=== PATIENT | male | born 1975 | race Caucasian/White ===

== ENCOUNTER 2017-01-19 10:47 | Inpatient (IN) | payer BC, OTHER ==
[~2017-01-19 10:47] MED LIST: Lidocaine 1%/Sod Bicarbonate in NS 8.4% 1 ML Syringe PRN; Sodium Chloride 0.9% 10 ML Syringe FLUSH PRN
[2017-01-19] MEDS ORDERED: fentaNYL 100 MCG/2 ML SDV ONE (12:29)
[2017-01-19] MEDS: Lactated Ringers 1,000 ML IV SCH ×2 (12:31→14:02)
[2017-01-19] MEDS ORDERED: Propofol 200 MG/20 ML SDV ONE ×6 (12:36→17:20)
[2017-01-19] MEDS ORDERED: Midazolam 1 MG/ML 2 ML SDV ONE (12:36)
[2017-01-19] MEDS ORDERED: Morphine PF 10 MG/10 ML SDV ONE (12:37)
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
[2017-01-19] MEDS ORDERED: ceFAZolin 1 GM Vial ONE (14:51)
[2017-01-19] MEDS ORDERED: ePHEDrine 50 MG/ML SDV ONE (15:52)
[2017-01-19] MEDS ORDERED: Lactated Ringers 1,000 ML ONE ×2 (16:07→16:54)
[2017-01-19] MEDS: ceFAZolin 1 GM Vial ONE ×2 (16:45→16:57)
[2017-01-19] MEDS: Morphine 8 MG, EPINEPHrine 0.3 MG, Cefuroxime 750 MG, Ketorolac 30 MG, Sodium Chloride ... ONE ×15 (16:45→20:00)
[2017-01-19] MEDS: Iodine/Sodium Iodide 2% Tincture 30 ML Bottle ONE ×2 (16:45→16:54)
[2017-01-19] MEDS: Bupivacaine 0.25% 30 ML SDV ONE ×4 (16:46→17:35)
[2017-01-19] MEDS: Vancomycin 1 GM SDV ONE ×2 (16:49→17:09)
[2017-01-19] MEDS: Triamcinolone Acetonide 40 MG/ML 1 ML MDV ONE ×2 (16:50→17:35)
[2017-01-19] MEDS ORDERED: Ketorolac 15 MG/ML SDV IVPUSH PRN (17:41)
[2017-01-19] MEDS ORDERED: Morphine 2 MG/ML Syringe IVPUSH PRN (17:41)
[2017-01-19] MEDS ORDERED: Magnesium Hydroxide 400 MG/5 ML Susp 30 ML Cup PO PRN (17:41)
[2017-01-19] MEDS ORDERED: Naloxone 0.4 MG/ML SDV IVPUSH PRN (17:41)
[2017-01-19] MEDS ORDERED: Ondansetron 4 MG/2 ML SDV IVPUSH PRN (17:41)
[2017-01-19] MEDS ORDERED: Bisacodyl 5 MG Tab PO PRN (17:41)
[2017-01-19] MEDS ORDERED: Cyclobenzaprine 10 MG Tab PO PRN (17:41)
[2017-01-19] MEDS ORDERED: Sennosides 8.6 MG Tab PO PRN (17:41)
[2017-01-19] MEDS ORDERED: diphenhydrAMINE 50 MG/ML SDV IVPUSH PRN (17:48)
[2017-01-19] MEDS ORDERED: fentaNYL 100 MCG/2 ML SDV IVPUSH PRN (17:48)
[2017-01-19] MEDS ORDERED: Zolpidem 5 MG Tab PO PRN (17:53)
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
--- NOTE | 2017-01-19 18:44 | CR ---
Pelvis and left hip: AP view of the pelvis was obtained as well as lateral view of the left hip. Comparison: Previous MRI left hip study of 10/13/16 and left hip exam of 09/10/16. Left hip prosthesis is noted. This appears to have been recently placed with soft tissue air being noted. Components of the prosthesis are aligned. No underlying bony abnormality is seen. Impression: 1. Satisfactory appearance of recently placed left hip prosthesis. Diagnostic code #2
[2017-01-19] MEDS ORDERED: Sodium Chloride 0.9% 250 ML IV ONE (19:55)
[2017-01-19] MEDS: Famotidine 20 MG Tab PO SCH (19:56)
[2017-01-19] MEDS ORDERED: Metoprolol Tartrate 5 MG/5 ML SDV IVPUSH PRN (19:57)
[2017-01-19] MEDS ORDERED: hydrALAZINE 20 MG/ML SDV IVPUSH PRN (19:57)
[2017-01-19] MEDS ORDERED: Sodium Chloride 0.9% 500 ML IV SCH (20:00)
[2017-01-19] MEDS: Acetaminophen/oxyCODONE 325-5 MG Tab PO PRN (20:07)
[2017-01-19] MEDS: Gabapentin 600 MG Tab PO SCH (20:58)
[2017-01-19] MEDS: Docusate Sodium 100 MG Cap PO SCH (20:58)
[2017-01-20] MEDS: ceFAZolin 2 GM in Premix Bag 1 BAG IV SCH ×3 (00:06→13:50)
[2017-01-20] MEDS: Acetaminophen/oxyCODONE 325-5 MG Tab PO PRN ×2 (00:07→12:08)
[2017-01-20] MEDS: Famotidine 20 MG Tab PO SCH (05:05)
[2017-01-20] MEDS ORDERED: Multivitamins,Therapeutic Tab PO SCH (07:00)
[2017-01-20] MEDS ORDERED: Tamsulosin 0.4 MG Cap.ER PO ONE (08:00)
[2017-01-20] MEDS: Gabapentin 600 MG Tab PO SCH ×2 (08:11→14:16)
[2017-01-20] MEDS: Docusate Sodium 100 MG Cap PO SCH (08:11)
--- NOTE | 2017-01-20 08:47 | PCM48HPAN ---
Post Anesthesia Note - EVALUATION WITHIN 48HRS OF ANESTHETIC Vital Signs in Normal Range: Yes Patient Participated in Evaluation: Yes Respiratory Function Stable: Yes Airway Patent: Yes Cardiovascular Function Stable: Yes Hydration Status Stable: Yes Pain Control Satisfactory: Yes Nausea and Vomiting Control Satisfactory: Yes Mental Status Recovered: Yes - COMMENTS/OBSERVATIONS Free Text/Narrative:: Patient denied any headache, residual numbness/tingling to lower extremities, or back pain.
[2017-01-20] MEDS ORDERED: Aspirin 325 MG Tab.EC PO SCH (09:00)
[2017-01-20] MEDS ORDERED: Simvastatin 20 MG Tab PO SCH (09:00)
--- NOTE | 2017-01-20 09:21 | PCM.DCSUM1 ---
Discharge Summary - Discharge Data Discharge Date: 01/20/17 (Admit date: 01/19/17) Discharge Disposition: Home, Self-Care 01 Condition: Good - Discharge Diagnosis/Problem(s) (1) Status post total hip replacement, left SNOMED Code(s): 816653645870, [id number] ICD Code: Z96.642 - PRESENCE OF LEFT ARTIFICIAL HIP JOINT Status: Acute Priority: High Current Visit: Yes Onset Date: ~01/19/17 (2) Dyslipidemia SNOMED Code(s): 856251564 ICD Code: E78.5 - HYPERLIPIDEMIA, UNSPECIFIED Status: Acute Current Visit : Yes (3) Chronic back pain SNOMED Code(s): 243239493 ICD Code: M54.9 - DORSALGIA, UNSPECIFIED; G89.29 - OTHER CHRONIC PAIN Status: Chronic Priority: Low Current Visit: Yes - Patient Summary/Data Consults: Consultations 01/19/17 17:41 Consult to Physician [CONS] Routine OT Evaluation and Treatment [CONS] Routine 01/19/17 17:49 PT Evaluation and Treatment [CONS] Routine - Patient Instructions Diet: Usual Diet as Tolerated Activity: Apply Ice, As Tolerated, Cough & Deep Breathe Driving: Do Not Drive Showering/Bathing: May Shower Wound/Incision Care: Keep Operative Site/Wound Site Clean and Dry, Do NOT Change Dressing Notify Provider of: Fever, Increased Pain, Swelling and Redness, Drainage, Nausea and/or Vomiting - Discharge Plan Home Medications: Home Meds oxyCODONE HCl/Acetaminophen [Percocet 5-325 mg Tablet] 1 - 2 each PO Q4HR PRN # 60 tablet 06/30/16 [Rx] Cyclobenzaprine [Flexeril] 10 mg PO Q6H PRN 01/16/17 [History] Gabapentin [Neurontin] 600 mg PO TID 01/16/17 [History] Zolpidem Tartrate [Zolpidem Tartrate] 5 mg PO DAILY 01/16/17 [History] atorvaSTATin [Lipitor] 20 mg PO DAILY 01/16/17 [History] - Discharge Summary/Plan Comment DC Time >30 min.: Yes (40) Discharge Summary/Plan Comment: Patient admitted to hospital s/p left total hip replacement. Hospitalist service consulted to co-manage patient. Herminio Vázquez is a relatively healthy 41 y.o. male patient who has a history of dyslpidemia - Patient Data Vitals - Most Recent: Last Vital Signs Temp 97.7 F 01/20/17 04:11 Pulse 91 01/20/17 08:01 Resp 12 01/20/17 04:11 BP 105/82 01/20/17 08:01 Pulse Ox 95 01/20/17 08:50 Weight - Most Recent: 264 lb 3.2 oz I&O - Last 24 hours: Intake & Output 01/19/17 01/20/17 01/20/17 22:59 06:59 14:59 Intake Total 800 3000 Output Total 325 225 Balance 475 5225 Lab Results - Last 24 hrs: Laboratory Results - last 24 hr 01/19/17 01/20/17 01/20/17 Range/Units 12:26 05:45 05:45 WBC 13.30 H (4.23-9.07) K/mm3 RBC 3.94 L (4.63-6.08) M/mm3 Hgb 12.8 L (13.7-17.5) gm/L Hct 36.4 L (40.1-51.0) % MCV 92.4 H (79.0-92.2) fl MCH 32.5 H (25.7-32.2) pg MCHC 35.2 (32.2-35.5) g/dl RDW Std Deviation 40.1 (35.1-43.9) fL Plt Count 193 (163-337) K/mm3 MPV 9.7 (9.4-12.3) fl Sodium 134 L (136-145) mEq/L Potassium 4.3 (3.5-5.1) mEq/L Chloride 100 (98-107) mEq/L Carbon Dioxide 24 (21-32) mEq/L Anion Gap 14.3 (5-15) BUN 14 (7-18) mg/dL Creatinine 1.2 (0.7-1.3) mg/dL Est Cr Clr Drug Dosing 86.71 mL/min Estimated GFR (MDRD) > 60 (>60) mL/min BUN/Creatinine Ratio 11.7 L (14-18) Glucose 141 H (74-106) mg/dL Calcium 8.2 L (8.5-10.1) mg/dL Total Bilirubin 0.8 (0.2-1.0) mg/dL AST 31 (15-37) U/L ALT 93 H (16-63) U/L Alkaline Phosphatase 55 (46-116) U/L Total Protein 6.1 L (6.4-8.2) g/dl Albumin 3.6 (3.4-5.0) g/dl Globulin 2.5 gm/dL Albumin/Globulin Ratio 1.4 (1-2) Blood Type O POSITIVE Gel Antibody Screen Negative Med Orders - Current: Current Medications Aspirin (Ecotrin) 325 mg PO BID [facility] Last Admin: 01/20/17 08:12 Dose: 325 mg Bisacodyl (Dulcolax) 5 mg PO DAILY PRN PRN Reason: Constipation Cyclobenzaprine HCl (Flexeril) 10 mg PO TID PRN PRN Reason: Spasms Last Admin: 01/20/17 00:06 Dose: 10 mg Docusate Sodium (Colace) 100 mg PO BID [facility] Last Admin: 01/20/17 08:11 Dose: 100 mg Famotidine (Pepcid) 20 mg PO Q12H [facility] Last Admin: 01/20/17 05:05 Dose: 20 mg Gabapentin (Neurontin) 600 mg PO TID [facility] Last Admin: 01/20/17 08:11 Dose: 600 mg Hydralazine HCl (Apresoline) 20 mg IVPUSH Q4H PRN PRN Reason: Hypertension Cefazolin Sodium/Dextrose 2 gm (/ Premix) 50 mls @ 100 mls/hr IV Q8H [facility] Stop: 01/20/17 17:29 Last Admin: 01/20/17 08:45 Dose: 100 mls/hr Ketorolac Tromethamine (Toradol) 15 mg IVPUSH Q6H PRN PRN Reason: Pain Last Admin: 01/20/17 00:06 Dose: 15 mg Magnesium Hydroxide (Milk Of Magnesia) 30 ml PO BID PRN PRN Reason: Constipation Metoprolol Tartrate (Lopressor) 5 mg IVPUSH Q4H PRN PRN Reason: Tachycardia Morphine Sulfate (Morphine) 2 mg IVPUSH Q2H PRN PRN Reason: Breakthrough Pain Multivitamins (Thera) 1 each PO WITHBREAKFAST [facility] Last Admin: 01/20/17 06:16 Dose: 1 each Naloxone HCl (Narcan) 0.1 mg IVPUSH Q5M PRN PRN Reason: Oversedation Ondansetron HCl (Zofran) 4 mg IVPUSH Q6H PRN PRN Reason: Nausea/Vomiting Oxycodone/Acetaminophen (Percocet 325-5 Mg) 1 - 2 tab PO Q4H PRN PRN Reason: Pain Last Admin: 01/20/17 00:07 Dose: 2 tab Senna (Senna) 8.6 mg PO BID PRN PRN Reason: Constipation Simvastatin (Zocor) 20 mg PO DAILY [facility] Last Admin: 01/20/17 08:12 Dose: 20 mg Zolpidem Tartrate (Ambien) 5 mg PO DAILY PRN PRN Reason: Insomnia Last Admin: 01/19/17 20:58 Dose: 5 mg Discontinued Medications Bupivacaine HCl (Marcaine 0.25%) Confirm Administered Dose 60 ml .ROUTE .STK- MED ONE Stop: 01/19/17 13:26 Last Admin: 01/19/17 17:35 Dose: 4 ml Cefazolin Sodium (Ancef) Confirm Administered Dose 2 gm .ROUTE .STK-MED ONE Stop: 01/19/17 13:26 Last Admin: 01/19/17 16:57 Dose: 2 gm Cefazolin Sodium (Ancef) Confirm Administered Dose 2 gm .ROUTE .STK-MED ONE Stop: 01/19/17 14:52 Morphine Sulfate 8 mg/Epinephrine HCl 0.3 mg/Cefuroxime Sodium 750 mg/Ketorolac Tromethamine 30 mg/Sodium Chloride 27.9 ml 0 mg .XX ONETIME ONE Stop: 01/19/17 14:01 Last Admin: 01/19/17 20:00 Dose: Not Given Diphenhydramine HCl (Benadryl) 25 mg IVPUSH Q6H PRN PRN Reason: Itching Ephedrine Sulfate (Ephedrine Sulfate) Confirm Administered Dose 50 mg .ROUTE .STK-MED ONE Stop: 01/19/17 15:53 Fentanyl (Sublimaze) Confirm Administered Dose 100 mcg .ROUTE .STK-MED ONE Stop: 01/19/17 12:30 Fentanyl (Sublimaze) 50 mcg IVPUSH Q5M PRN PRN Reason: Pain Lactated Ringer's (Ringers, Lactated) 1,000 mls @ 125 mls/hr IV ASDIRECTED [facility] Stop: 01/19/17 23:00 Last Admin: 01/19/17 14:02 Dose: 125 mls/hr Lactated Ringer's (Ringers, Lactated) Confirm Administered Dose 1,000 mls @ as directed .ROUTE .STK-MED ONE Stop: 01/19/17 16:08 Lactated Ringer's (Ringers, Lactated) Confirm Administered Dose 1,000 mls @ as directed .ROUTE .STK-MED ONE Stop: 01/19/17 16:55 Sodium Chloride (Normal Saline) 250 mls @ 99 mls/hr IV .BOLUS ONE Stop: 01/19/17 22:26 Last Admin: 01/19/17 20:15 Dose: 999 mls/hr Sodium Chloride (Normal Saline) 500 mls @ 125 mls/hr IV ASDIRECTED [facility] Iodine (Iodine 2% Mild Tincture) Confirm Administered Dose 30 ml .ROUTE .STK- MED ONE Stop: 01/19/17 13:26 Last Admin: 01/19/17 16:54 Dose: 18 ml Lidocaine/Sodium Bicarbonate (Buffered Lidocaine 1% In Ns 8.4%) 0.25 ml .XX ONETIME PRN PRN Reason: Prior to IV Start Stop: 01/19/17 18:00 Last Admin: 01/19/17 12:31 Dose: 0.25 ml Midazolam HCl (Versed 1 Mg/Ml) Confirm Administered Dose 2 mg .ROUTE .STK-MED ONE Stop: 01/19/17 12:37 Morphine Sulfate (Duramorph Pf) Confirm Administered Dose 10 mg .ROUTE .STK-MED ONE Stop: 01/19/17 12:38 Propofol (Diprivan 20 Ml) Confirm Administered Dose 400 mg .ROUTE .STK-MED ONE Stop: 01/19/17 12:37 Propofol (Diprivan 20 Ml) Confirm Administered Dose 200 mg .ROUTE .STK-MED ONE Stop: 01/19/17 12:52 Propofol (Diprivan 20 Ml) Confirm Administered Dose 200 mg .ROUTE .STK-MED ONE Stop: 01/19/17 16:21 Propofol (Diprivan 20 Ml) Confirm Administered Dose 200 mg .ROUTE .STK-MED ONE Stop: 01/19/17 16:46 Propofol (Diprivan 20 Ml) Confirm Administered Dose 200 mg .ROUTE .STK-MED ONE Stop: 01/19/17 17:06 Propofol (Diprivan 20 Ml) Confirm Administered Dose 200 mg .ROUTE .STK-MED ONE Stop: 01/19/17 17:21 Sodium Chloride (Saline Flush) 10 ml FLUSH ASDIRECTED PRN PRN Reason: Keep Vein Open Stop: 01/19/17 18:00 Tamsulosin HCl (Flomax) 0.4 mg PO ONETIME ONE Stop: 01/20/17 08:01 Last Admin: 01/20/17 08:11 Dose: 0.4 mg Tranexamic Acid (Cyklokapron) Confirm Administered Dose 1,000 mg .ROUTE .STK- MED ONE Stop: 01/19/17 13:26 Last Admin: 01/19/17 17:09 Dose: 1,000 mg Triamcinolone Acetonide (Kenalog-40) Confirm Administered Dose 80 mg .ROUTE .STK -MED ONE Stop: 01/19/17 13:26 Last Admin: 01/19/17 17:35 Dose: 80 mg Vancomycin HCl (Vancomycin) Confirm Administered Dose 1 gm .ROUTE .STK-MED ONE Stop: 01/19/17 13:26 Last Admin: 01/19/17 17:09 Dose: 1 gm *Q Meaningful Use (DIS) - VTE *Q VTE Criteria *Q: - Stroke *Q Stroke Criteria *Q: - AMI *Q AMI Criteria *Q:
--- NOTE | 2017-01-20 09:41 | PCM.PN ---
- General Info Date of Service: 01/20/17 Admission Dx/Problem (Free Text): Admission Diagnosis/Problem Admission Diagnosis/Problem Osteoarthritis of hip Functional Status: Reports: Pain Controlled, Ambulating, Urinating (minimal amount), Incentive Spirometry Pain Score: 3 - Review of Systems General: Reports: Appetite. Denies: Fever, Weakness, Fatigue, Malaise, Chills, Night Sweats HEENT: Denies: Ear Pain, Eye Pain, Headaches, Sore Throat Pulmonary: Denies: Shortness of Breath, Pleuritic Chest Pain, Cough, Sputum, Wheezing Cardiovascular: Denies: Chest Pain, Palpitations, Dyspnea on Exertion, Edema, Lightheadedness Gastrointestinal: Reports: Difficulty Swallowing (using walker ), Flatus. Denies: Abdominal Pain, Constipation, Decreased Appetite, Diarrhea, Nausea, Vomiting Genitourinary: Denies: Dysuria, Frequency, Burning, Pain, Urgency Musculoskeletal: Reports: Back Pain (chronic), Leg Pain (mild ). Denies: Neck Pain Skin: Reports: Other (wound on left hip that is bandaged ). Denies: Cyanosis Neurological: Reports: Difficulty Walking, Gait Disturbance. Denies: Confusion , Dizziness, Headache, Numbness, Weakness Psychiatric: Reports: No Symptoms - Patient Data Vitals - Most Recent: Last Vital Signs Temp 97.7 F 01/20/17 04:11 Pulse 91 01/20/17 08:01 Resp 12 01/20/17 04:11 BP 105/82 01/20/17 08:01 Pulse Ox 95 01/20/17 08:50 Weight - Most Recent: 264 lb 3.2 oz I&O - Last 24 Hours: Intake & Output 01/19/17 01/20/17 01/20/17 22:59 06:59 14:59 Intake Total 800 3000 Output Total 325 225 Balance 475 3465 Lab Results Last 24 Hours: Laboratory Results - last 24 hr 01/19/17 01/20/17 01/20/17 Range/Units 12:26 05:45 05:45 WBC 13.30 H (4.23-9.07) K/mm3 RBC 3.94 L (4.63-6.08) M/mm3 Hgb 12.8 L (13.7-17.5) gm/L Hct 36.4 L (40.1-51.0) % MCV 92.4 H (79.0-92.2) fl MCH 32.5 H (25.7-32.2) pg MCHC 35.2 (32.2-35.5) g/dl RDW Std Deviation 40.1 (35.1-43.9) fL Plt Count 193 (163-337) K/mm3 MPV 9.7 (9.4-12.3) fl Sodium 134 L (136-145) mEq/L Potassium 4.3 (3.5-5.1) mEq/L Chloride 100 (98-107) mEq/L Carbon Dioxide 24 (21-32) mEq/L Anion Gap 14.3 (5-15) BUN 14 (7-18) mg/dL Creatinine 1.2 (0.7-1.3) mg/dL Est Cr Clr Drug Dosing 86.71 mL/min Estimated GFR (MDRD) > 60 (>60) mL/min BUN/Creatinine Ratio 11.7 L (14-18) Glucose 141 H (74-106) mg/dL Calcium 8.2 L (8.5-10.1) mg/dL Total Bilirubin 0.8 (0.2-1.0) mg/dL AST 31 (15-37) U/L ALT 93 H (16-63) U/L Alkaline Phosphatase 55 (46-116) U/L Total Protein 6.1 L (6.4-8.2) g/dl Albumin 3.6 (3.4-5.0) g/dl Globulin 2.5 gm/dL Albumin/Globulin Ratio 1.4 (1-2) Blood Type O POSITIVE Gel Antibody Screen Negative Med Orders - Current: Current Medications Aspirin (Ecotrin) 325 mg PO BID REPLACED BY [facility] Last Admin: 01/20/17 08:12 Dose: 325 mg Bisacodyl (Dulcolax) 5 mg PO DAILY PRN PRN Reason: Constipation Cyclobenzaprine HCl (Flexeril) 10 mg PO TID PRN PRN Reason: Spasms Last Admin: 01/20/17 00:06 Dose: 10 mg Docusate Sodium (Colace) 100 mg PO BID REPLACED BY [facility] Last Admin: 01/20/17 08:11 Dose: 100 mg Famotidine (Pepcid) 20 mg PO Q12H REPLACED BY [facility] Last Admin: 01/20/17 05:05 Dose: 20 mg Gabapentin (Neurontin) 600 mg PO TID REPLACED BY [facility] Last Admin: 01/20/17 08:11 Dose: 600 mg Hydralazine HCl (Apresoline) 20 mg IVPUSH Q4H PRN PRN Reason: Hypertension Cefazolin Sodium/Dextrose 2 gm (/ Premix) 50 mls @ 100 mls/hr IV Q8H REPLACED BY [facility] Stop: 01/20/17 17:29 Last Admin: 01/20/17 08:45 Dose: 100 mls/hr Ketorolac Tromethamine (Toradol) 15 mg IVPUSH Q6H PRN PRN Reason: Pain Last Admin: 01/20/17 00:06 Dose: 15 mg Magnesium Hydroxide (Milk Of Magnesia) 30 ml PO BID PRN PRN Reason: Constipation Metoprolol Tartrate (Lopressor) 5 mg IVPUSH Q4H PRN PRN Reason: Tachycardia Morphine Sulfate (Morphine) 2 mg IVPUSH Q2H PRN PRN Reason: Breakthrough Pain Multivitamins (Thera) 1 each PO WITHBREAKFAST REPLACED BY [facility] Last Admin: 01/20/17 06:16 Dose: 1 each Naloxone HCl (Narcan) 0.1 mg IVPUSH Q5M PRN PRN Reason: Oversedation Ondansetron HCl (Zofran) 4 mg IVPUSH Q6H PRN PRN Reason: Nausea/Vomiting Oxycodone/Acetaminophen (Percocet 325-5 Mg) 1 - 2 tab PO Q4H PRN PRN Reason: Pain Last Admin: 01/20/17 00:07 Dose: 2 tab Senna (Senna) 8.6 mg PO BID PRN PRN Reason: Constipation Simvastatin (Zocor) 20 mg PO DAILY REPLACED BY [facility] Last Admin: 01/20/17 08:12 Dose: 20 mg Zolpidem Tartrate (Ambien) 5 mg PO DAILY PRN PRN Reason: Insomnia Last Admin: 01/19/17 20:58 Dose: 5 mg Discontinued Medications Bupivacaine HCl (Marcaine 0.25%) Confirm Administered Dose 60 ml .ROUTE .STK- MED ONE Stop: 01/19/17 13:26 Last Admin: 01/19/17 17:35 Dose: 4 ml Cefazolin Sodium (Ancef) Confirm Administered Dose 2 gm .ROUTE .STK-MED ONE Stop: 01/19/17 13:26 Last Admin: 01/19/17 16:57 Dose: 2 gm Cefazolin Sodium (Ancef) Confirm Administered Dose 2 gm .ROUTE .STK-MED ONE Stop: 01/19/17 14:52 Morphine Sulfate 8 mg/Epinephrine HCl 0.3 mg/Cefuroxime Sodium 750 mg/Ketorolac Tromethamine 30 mg/Sodium Chloride 27.9 ml 0 mg .XX ONETIME ONE Stop: 01/19/17 14:01 Last Admin: 01/19/17 20:00 Dose: Not Given Diphenhydramine HCl (Benadryl) 25 mg IVPUSH Q6H PRN PRN Reason: Itching Ephedrine Sulfate (Ephedrine Sulfate) Confirm Administered Dose 50 mg .ROUTE .STK-MED ONE Stop: 01/19/17 15:53 Fentanyl (Sublimaze) Confirm Administered Dose 100 mcg .ROUTE .STK-MED ONE Stop: 01/19/17 12:30 Fentanyl (Sublimaze) 50 mcg IVPUSH Q5M PRN PRN Reason: Pain Lactated Ringer's (Ringers, Lactated) 1,000 mls @ 125 mls/hr IV ASDIRECTED REPLACED BY [facility] Stop: 01/19/17 23:00 Last Admin: 01/19/17 14:02 Dose: 125 mls/hr Lactated Ringer's (Ringers, Lactated) Confirm Administered Dose 1,000 mls @ as directed .ROUTE .STK-MED ONE Stop: 01/19/17 16:08 Lactated Ringer's (Ringers, Lactated) Confirm Administered Dose 1,000 mls @ as directed .ROUTE .STK-MED ONE Stop: 01/19/17 16:55 Sodium Chloride (Normal Saline) 250 mls @ 99 mls/hr IV .BOLUS ONE Stop: 01/19/17 22:26 Last Admin: 01/19/17 20:15 Dose: 999 mls/hr Sodium Chloride (Normal Saline) 500 mls @ 125 mls/hr IV ASDIRECTED REPLACED BY [facility] Iodine (Iodine 2% Mild Tincture) Confirm Administered Dose 30 ml .ROUTE .STK- MED ONE Stop: 01/19/17 13:26 Last Admin: 01/19/17 16:54 Dose: 18 ml Lidocaine/Sodium Bicarbonate (Buffered Lidocaine 1% In Ns 8.4%) 0.25 ml .XX ONETIME PRN PRN Reason: Prior to IV Start Stop: 01/19/17 18:00 Last Admin: 01/19/17 12:31 Dose: 0.25 ml Midazolam HCl (Versed 1 Mg/Ml) Confirm Administered Dose 2 mg .ROUTE .STK-MED ONE Stop: 01/19/17 12:37 Morphine Sulfate (Duramorph Pf) Confirm Administered Dose 10 mg .ROUTE .STK-MED ONE Stop: 01/19/17 12:38 Propofol (Diprivan 20 Ml) Confirm Administered Dose 400 mg .ROUTE .STK-MED ONE Stop: 01/19/17 12:37 Propofol (Diprivan 20 Ml) Confirm Administered Dose 200 mg .ROUTE .STK-MED ONE Stop: 01/19/17 12:52 Propofol (Diprivan 20 Ml) Confirm Administered Dose 200 mg .ROUTE .STK-MED ONE Stop: 01/19/17 16:21 Propofol (Diprivan 20 Ml) Confirm Administered Dose 200 mg .ROUTE .STK-MED ONE Stop: 01/19/17 16:46 Propofol (Diprivan 20 Ml) Confirm Administered Dose 200 mg .ROUTE .STK-MED ONE Stop: 01/19/17 17:06 Propofol (Diprivan 20 Ml) Confirm Administered Dose 200 mg .ROUTE .STK-MED ONE Stop: 01/19/17 17:21 Sodium Chloride (Saline Flush) 10 ml FLUSH ASDIRECTED PRN PRN Reason: Keep Vein Open Stop: 01/19/17 18:00 Tamsulosin HCl (Flomax) 0.4 mg PO ONETIME ONE Stop: 01/20/17 08:01 Last Admin: 01/20/17 08:11 Dose: 0.4 mg Tranexamic Acid (Cyklokapron) Confirm Administered Dose 1,000 mg .ROUTE .STK- MED ONE Stop: 01/19/17 13:26 Last Admin: 01/19/17 17:09 Dose: 1,000 mg Triamcinolone Acetonide (Kenalog-40) Confirm Administered Dose 80 mg .ROUTE .STK -MED ONE Stop: 01/19/17 13:26 Last Admin: 01/19/17 17:35 Dose: 80 mg Vancomycin HCl (Vancomycin) Confirm Administered Dose 1 gm .ROUTE .STK-MED ONE Stop: 01/19/17 13:26 Last Admin: 01/19/17 17:09 Dose: 1 gm - Exam Quality Assessment: Supplemental Oxygen (Pt. on 1L via [place] ) General: Alert, Oriented, Cooperative HEENT: Pupils Equal, Pupils Reactive, EOMI, Mucous Membr. Moist/[place] Neck: Supple, Trachea Midline, No JVD Lungs: Clear to Auscultation, Normal Respiratory Effort Cardiovascular: Regular Rate, Regular Rhythm, No Murmurs GI/Abdominal Exam: Normal Bowel Sounds, Soft, Non-Tender, No Organomegaly, No Distention (Male) Exam: Deferred Back Exam: Normal Inspection, Other (Chronic pain) Extremities: Normal Inspection, No Pedal Edema, Limited Range of Motion (s/p left total hip ). No: Increased Warmth, Redness Peripheral Pulses: 2+: Radial (L), Radial (R), Posterior Tibial (L), Posterior Tibial (R), Dorsalis Pedis (L), Dorsalis Pedis (R) Skin: Warm, Dry, Intact Wound/Incisions: Dressing Dry and Intact, No Drainage Neurological: No New Focal Deficit Psy/Mental Status: Alert, Normal Affect, Normal Mood - Problem List & Annotations (1) Status post total hip replacement, left SNOMED Code(s): 762816620522, 778260785786 Code(s): Z96.642 - PRESENCE OF LEFT ARTIFICIAL HIP JOINT Status: Acute Priority: High Current Visit: Yes Onset Date: ~01/19/17 (2) Dyslipidemia SNOMED Code(s): 215063082 Code(s): E78.5 - HYPERLIPIDEMIA, UNSPECIFIED Status: Acute Current Visit : Yes (3) Chronic back pain SNOMED Code(s): 401254726 Code(s): M54.9 - DORSALGIA, UNSPECIFIED; G89.29 - OTHER CHRONIC PAIN Status : Chronic Priority: Low Current Visit: Yes - Problem List Review Problem List Initiated/Reviewed/Updated: Yes - Plan Plan:: I/P: Acute: Post-operative care state: -Labs this AM: WBC - 13.30 Hgb - 12.8 Hct - 36.4 Plt - 193 Na - 134 K - 4.3 Creatinine - 1.2 Calcium - 8.2 -Continue to monitor for hemodynamic instability S/P Left total hip arthroplasty and left knee steroid injection - Stable - DVT and pain management per primary ortho team Hx of chronic left hip and knee pain secondary to OA/DJD - Pain management per primary care ortho team Resolved: Post operative hypotension - BP 107/64 at 4:11 and 105/62 at 801 Chronic: Dyslipidemia Post-traumatic OA/DJD Post-traumatic back pain Post-traumatic brain injury with memory loss Peripheral neuropathy Obesity - BMI of 34.5 Plan: He remains clinically stable Routine AM meds Continue home meds PT/OT consult IS q2 awake OK from hospitalist standpoint for discharge home today. Thank you for the opportunity to participate in the management of this patient.
[2017-01-20 12:27] VITALS: BP 129/71
--- NOTE | 2017-01-22 09:36 | PCM.SURGPN ---
- General Info Date of Service: 01/20/17 POD#: 1 Functional Status: Reports: Pain Controlled, Tolerating Diet, Ambulating, Urinating, Other (The pt has been active in his room and feels prepared for discharge to home.) - Review of Systems General: Denies: Fever, Chills Musculoskeletal: Reports: Other (The pt has met inpatient therapy goals.) - Patient Data Vitals - Most Recent: Last Vital Signs Temp 98.6 F 01/20/17 11:39 Pulse 91 01/20/17 11:39 Resp 20 01/20/17 09:00 BP 129/71 01/20/17 11:39 Pulse Ox 92 L 01/20/17 11:39 Weight - Most Recent: 264 lb 3.2 oz Med Orders - Current: Current Medications Discontinued Medications Aspirin (Ecotrin) 325 mg PO BID [facility] Last Admin: 01/20/17 08:12 Dose: 325 mg Bisacodyl (Dulcolax) 5 mg PO DAILY PRN PRN Reason: Constipation Bupivacaine HCl (Marcaine 0.25%) Confirm Administered Dose 60 ml .ROUTE .STK- MED ONE Stop: 01/19/17 13:26 Last Admin: 01/19/17 17:35 Dose: 4 ml Cefazolin Sodium (Ancef) Confirm Administered Dose 2 gm .ROUTE .STK-MED ONE Stop: 01/19/17 13:26 Last Admin: 01/19/17 16:57 Dose: 2 gm Cefazolin Sodium (Ancef) Confirm Administered Dose 2 gm .ROUTE .STK-MED ONE Stop: 01/19/17 14:52 Morphine Sulfate 8 mg/Epinephrine HCl 0.3 mg/Cefuroxime Sodium 750 mg/Ketorolac Tromethamine 30 mg/Sodium Chloride 27.9 ml 0 mg .XX ONETIME ONE Stop: 01/19/17 14:01 Last Admin: 01/19/17 20:00 Dose: Not Given Cyclobenzaprine HCl (Flexeril) 10 mg PO TID PRN PRN Reason: Spasms Last Admin: 01/20/17 00:06 Dose: 10 mg Diphenhydramine HCl (Benadryl) 25 mg IVPUSH Q6H PRN PRN Reason: Itching Docusate Sodium (Colace) 100 mg PO BID [facility] Last Admin: 01/20/17 08:11 Dose: 100 mg Ephedrine Sulfate (Ephedrine Sulfate) Confirm Administered Dose 50 mg .ROUTE .STK-MED ONE Stop: 01/19/17 15:53 Famotidine (Pepcid) 20 mg PO Q12H [facility] Last Admin: 01/20/17 05:05 Dose: 20 mg Fentanyl (Sublimaze) Confirm Administered Dose 100 mcg .ROUTE .STK-MED ONE Stop: 01/19/17 12:30 Fentanyl (Sublimaze) 50 mcg IVPUSH Q5M PRN PRN Reason: Pain Gabapentin (Neurontin) 600 mg PO TID [facility] Last Admin: 01/20/17 14:16 Dose: 600 mg Hydralazine HCl (Apresoline) 20 mg IVPUSH Q4H PRN PRN Reason: Hypertension Lactated Ringer's (Ringers, Lactated) 1,000 mls @ 125 mls/hr IV ASDIRECTED [facility] Stop: 01/19/17 23:00 Last Admin: 01/19/17 14:02 Dose: 125 mls/hr Lactated Ringer's (Ringers, Lactated) Confirm Administered Dose 1,000 mls @ as directed .ROUTE .STK-MED ONE Stop: 01/19/17 16:08 Lactated Ringer's (Ringers, Lactated) Confirm Administered Dose 1,000 mls @ as directed .ROUTE .STK-MED ONE Stop: 01/19/17 16:55 Cefazolin Sodium/Dextrose 2 gm (/ Premix) 50 mls @ 100 mls/hr IV Q8H [facility] Stop: 01/20/17 17:29 Last Admin: 01/20/17 13:50 Dose: 100 mls/hr Sodium Chloride (Normal Saline) 250 mls @ 99 mls/hr IV .BOLUS ONE Stop: 01/19/17 22:26 Last Admin: 01/19/17 20:15 Dose: 999 mls/hr Sodium Chloride (Normal Saline) 500 mls @ 125 mls/hr [facility] Iodine (Iodine 2% Mild Tincture) Confirm Administered Dose 30 ml .ROUTE .STK- MED ONE Stop: 01/19/17 13:26 Last Admin: 01/19/17 16:54 Dose: 18 ml Ketorolac Tromethamine (Toradol) 15 mg IVPUSH Q6H PRN PRN Reason: Pain Last Admin: 01/20/17 00:06 Dose: 15 mg Lidocaine/Sodium Bicarbonate (Buffered Lidocaine 1% In Ns 8.4%) 0.25 ml .XX ONETIME PRN PRN Reason: Prior to IV Start Stop: 01/19/17 18:00 Last Admin: 01/19/17 12:31 Dose: 0.25 ml Magnesium Hydroxide (Milk Of Magnesia) 30 ml PO BID PRN PRN Reason: Constipation Metoprolol Tartrate (Lopressor) 5 mg IVPUSH Q4H PRN PRN Reason: Tachycardia Midazolam HCl (Versed 1 Mg/Ml) Confirm Administered Dose 2 mg .ROUTE .STK-MED ONE Stop: 01/19/17 12:37 Morphine Sulfate (Duramorph Pf) Confirm Administered Dose 10 mg .ROUTE .STK-MED ONE Stop: 01/19/17 12:38 Morphine Sulfate (Morphine) 2 mg IVPUSH Q2H PRN PRN Reason: Breakthrough Pain Multivitamins (Thera) 1 each PO WITHBREAKFAST [facility] Last Admin: 01/20/17 06:16 Dose: 1 each Naloxone HCl (Narcan) 0.1 mg IVPUSH Q5M PRN PRN Reason: Oversedation Ondansetron HCl (Zofran) 4 mg IVPUSH Q6H PRN PRN Reason: Nausea/Vomiting Oxycodone/Acetaminophen (Percocet 325-5 Mg) 1 - 2 tab PO Q4H PRN PRN Reason: Pain Last Admin: 01/20/17 12:08 Dose: 2 tab Propofol (Diprivan 20 Ml) Confirm Administered Dose 400 mg .ROUTE .STK-MED ONE Stop: 01/19/17 12:37 Propofol (Diprivan 20 Ml) Confirm Administered Dose 200 mg .ROUTE .STK-MED ONE Stop: 01/19/17 12:52 Propofol (Diprivan 20 Ml) Confirm Administered Dose 200 mg .ROUTE .STK-MED ONE Stop: 01/19/17 16:21 Propofol (Diprivan 20 Ml) Confirm Administered Dose 200 mg .ROUTE .STK-MED ONE Stop: 01/19/17 16:46 Propofol (Diprivan 20 Ml) Confirm Administered Dose 200 mg .ROUTE .STK-MED ONE Stop: 01/19/17 17:06 Propofol (Diprivan 20 Ml) Confirm Administered Dose 200 mg .ROUTE .STK-MED ONE Stop: 01/19/17 17:21 Senna (Senna) 8.6 mg PO BID PRN PRN Reason: Constipation Simvastatin (Zocor) 20 mg PO DAILY [facility] Last Admin: 01/20/17 08:12 Dose: 20 mg Sodium Chloride (Saline Flush) 10 ml FLUSH ASDIRECTED PRN PRN Reason: Keep Vein Open Stop: 01/19/17 18:00 Tamsulosin HCl (Flomax) 0.4 mg PO ONETIME ONE Stop: 01/20/17 08:01 Last Admin: 01/20/17 08:11 Dose: 0.4 mg Tranexamic Acid (Cyklokapron) Confirm Administered Dose 1,000 mg .ROUTE .STK- MED ONE Stop: 01/19/17 13:26 Last Admin: 01/19/17 17:09 Dose: 1,000 mg Triamcinolone Acetonide (Kenalog-40) Confirm Administered Dose 80 mg .ROUTE .STK -MED ONE Stop: 01/19/17 13:26 Last Admin: 01/19/17 17:35 Dose: 80 mg Vancomycin HCl (Vancomycin) Confirm Administered Dose 1 gm .ROUTE .STK-MED ONE Stop: 01/19/17 13:26 Last Admin: 01/19/17 17:09 Dose: 1 gm Zolpidem Tartrate (Ambien) 5 mg PO DAILY PRN PRN Reason: Insomnia Last Admin: 01/19/17 20:58 Dose: 5 mg - Exam Wound/Incisions: Dressing Dry and Intact General: Alert, Cooperative Extremities: Other (Significant eccymosis left thigh. Left thigh soft and nontender. NVS intact for BLE and Dina's negative. Independent SLR LLE.) - Problem List Review Problem List Initiated/Reviewed/Updated: Yes - Assessment Assessment (Free Text/Narrative):: POD#1 - left MARYANN with left knee cortisone injection - Plan Plan (Free Text/Narrative):: 1. Discharge to home today. 2. 325mg ASA BID with TEDs and frequent mobility. 3. Hgb 12.8. 4. MARYANN precautions. The pt's case was discussed with Dr. Russell.
--- NOTE | 2017-01-22 09:39 | PCM.DCSUM1 ---
Discharge Summary - Hospital Course Brief History: Herminio is a 41 yo male who underwent left MARYANN with left knee cortisone injection with Dr. Russlel on 01-19-2017. The procedures were completed under spinal anesthesia with sedation. The pt tolerated the procedures well and was admitted to the Medical-Surgical Unit. The pt received scarlett-operative antibiotic therapy. Medical managment was provided by the Hospitalist service and the pt's hospital course was uneventful. A mepilex dressing was applied to the surgical site at time of surgery and this remained clean and dry. On POD#1 , 325mg ASA BID was initiated for VTE prophylaxis. SCDs and TEDs were also used. The pt participated in P.T. and O.T. and progressed well. He was allowed to WBAT and used a FWW for mobility. He followed MARYANN precautions. On POD#1, the pt's Hgb was 12.8. On POD#1, the pt was deemed appropriate for discharge to home. - Discharge Data Discharge Date: 01/20/17 Discharge Disposition: Home, Self-Care 01 Condition: Good - Patient Summary/Data Consults: Consultations 01/19/17 17:41 Consult to Physician [CONS] Routine OT Evaluation and Treatment [CONS] Routine 01/19/17 17:49 PT Evaluation and Treatment [CONS] Routine - Patient Instructions Diet: Usual Diet as Tolerated Activity: Apply Ice, As Tolerated, Elevate Extremity, Full Weight Bearing Activity, Other: MARYANN precautions. Driving: Do Not Drive Showering/Bathing: May Shower Wound/Incision Care: Keep Operative Site/Wound Site Clean and Dry, Do NOT Change Dressing Notify Provider of: Fever, Increased Pain, Swelling and Redness, Drainage, Nausea and/or Vomiting Other/Special Instructions: Please get up and moving around every hour while awake. This helps to prevent blood clots. Please use your walker and have help with mobility as needed. Please take a 325mg ASPIRIN TWICE DAILY. This also helps to prevent blood clots. Follow the hip precautions that were instructed in the Hospital. You may schedule for P.T. Use the pain medication as needed. The medication may cause drowsiness and constipation. Contact your primary care provider for instructions if you are constipated. You may use a stool softener like docusate sodium or Colace 100mg twice daily and/or a laxative like Miralax daily for constipation. Wear the EBONI hose during the day and you may remove these at night. Place ice to the hip often. Place a towel between your skin and the blue pad. Schedule an appointment with your primary care provider for 'routine post-op care'. Call the Clinic with questions or concerns - [phone]. - Discharge Plan Prescriptions/Med Rec: Acetaminophen/oxyCODONE [Percocet 325-5 MG] 1 - 2 tab PO Q4H PRN #60 tablet PRN Reason: Pain Aspirin [Ecotrin] 325 mg PO BID #84 tab.ec Cyclobenzaprine [Flexeril] 10 mg PO TID PRN #40 tablet PRN Reason: muscle spasms Home Medications: Home Meds Gabapentin [Neurontin] 600 mg PO TID 01/16/17 [History] Zolpidem Tartrate 5 mg PO DAILY 01/16/17 [History] atorvaSTATin [Lipitor] 20 mg PO DAILY 01/16/17 [History] Acetaminophen/oxyCODONE [Percocet 325-5 MG] 1 - 2 tab PO Q4H PRN #60 tablet [Rx] Aspirin [Ecotrin] 325 mg PO BID #84 tab.ec 01/20/17 [Rx] Cyclobenzaprine [Flexeril] 10 mg PO TID PRN #40 tablet 01/20/17 [Rx] Patient Handouts: Total Hip Replacement, Care After, Total Hip Replacement, [place], Aspirin, ASA oral tablets, Total Hip Replacement, Care After, Easy -to-Read Referrals: Мария Lima PA-C [Physician Safety Coordinator] - 01/27/17 8:45 am (Please follow-up with your previously scheduled appointment with Dr. Russell on January 27 at 0845am. The next appointment following the initial appointment is ThursdayFebruary 03 at 1015am. ) Bridger Dunbar Jr, MD [Primary Care Provider] - (Please schedule a post-op follow-up appoinent with your primary care doctor, Dr. Dunbar, in 1 week. ) - Patient Data Vitals - Most Recent: Last Vital Signs Temp 98.6 F 01/20/17 11:39 Pulse 91 01/20/17 11:39 Resp 20 01/20/17 09:00 BP 129/71 01/20/17 11:39 Pulse Ox 92 L 01/20/17 11:39 Weight - Most Recent: 264 lb 3.2 oz Med Orders - Current: Current Medications Discontinued Medications Aspirin (Ecotrin) 325 mg PO BID [facility] Last Admin: 01/20/17 08:12 Dose: 325 mg Bisacodyl (Dulcolax) 5 mg PO DAILY PRN PRN Reason: Constipation Bupivacaine HCl (Marcaine 0.25%) Confirm Administered Dose 60 ml .ROUTE .STK- MED ONE Stop: 01/19/17 13:26 Last Admin: 01/19/17 17:35 Dose: 4 ml Cefazolin Sodium (Ancef) Confirm Administered Dose 2 gm .ROUTE .STK-MED ONE Stop: 01/19/17 13:26 Last Admin: 01/19/17 16:57 Dose: 2 gm Cefazolin Sodium (Ancef) Confirm Administered Dose 2 gm .ROUTE .STK-MED ONE Stop: 01/19/17 14:52 Morphine Sulfate 8 mg/Epinephrine HCl 0.3 mg/Cefuroxime Sodium 750 mg/Ketorolac Tromethamine 30 mg/Sodium Chloride 27.9 ml 0 mg .XX ONETIME ONE Stop: 01/19/17 14:01 Last Admin: 01/19/17 20:00 Dose: Not Given Cyclobenzaprine HCl (Flexeril) 10 mg PO TID PRN PRN Reason: Spasms Last Admin: 01/20/17 00:06 Dose: 10 mg Diphenhydramine HCl (Benadryl) 25 mg IVPUSH Q6H PRN PRN Reason: Itching Docusate Sodium (Colace) 100 mg PO BID [facility] Last Admin: 01/20/17 08:11 Dose: 100 mg Ephedrine Sulfate (Ephedrine Sulfate) Confirm Administered Dose 50 mg .ROUTE .STK-MED ONE Stop: 01/19/17 15:53 Famotidine (Pepcid) 20 mg PO Q12H [facility] Last Admin: 01/20/17 05:05 Dose: 20 mg Fentanyl (Sublimaze) Confirm Administered Dose 100 mcg .ROUTE .STK-MED ONE Stop: 01/19/17 12:30 Fentanyl (Sublimaze) 50 mcg IVPUSH Q5M PRN PRN Reason: Pain Gabapentin (Neurontin) 600 mg PO TID [facility] Last Admin: 01/20/17 14:16 Dose: 600 mg Hydralazine HCl (Apresoline) 20 mg IVPUSH Q4H PRN PRN Reason: Hypertension Lactated Ringer's (Ringers, Lactated) 1,000 mls @ 125 mls/hr IV ASDIRECTED [facility] Stop: 01/19/17 23:00 Last Admin: 01/19/17 14:02 Dose: 125 mls/hr Lactated Ringer's (Ringers, Lactated) Confirm Administered Dose 1,000 mls @ as directed .ROUTE .STK-MED ONE Stop: 01/19/17 16:08 Lactated Ringer's (Ringers, Lactated) Confirm Administered Dose 1,000 mls @ as directed .ROUTE .STK-MED ONE Stop: 01/19/17 16:55 Cefazolin Sodium/Dextrose 2 gm (/ Premix) 50 mls @ 100 mls/hr IV Q8H [facility] Stop: 01/20/17 17:29 Last Admin: 01/20/17 13:50 Dose: 100 mls/hr Sodium Chloride (Normal Saline) 250 mls @ 99 mls/hr IV .BOLUS ONE Stop: 01/19/17 22:26 Last Admin: 01/19/17 20:15 Dose: 999 mls/hr Sodium Chloride (Normal Saline) 500 mls @ 125 mls/hr IV ASDIRECTED [facility] Iodine (Iodine 2% Mild Tincture) Confirm Administered Dose 30 ml .ROUTE .STK- MED ONE Stop: 01/19/17 13:26 Last Admin: 01/19/17 16:54 Dose: 18 ml Ketorolac Tromethamine (Toradol) 15 mg IVPUSH Q6H PRN PRN Reason: Pain Last Admin: 01/20/17 00:06 Dose: 15 mg Lidocaine/Sodium Bicarbonate (Buffered Lidocaine 1% In Ns 8.4%) 0.25 ml .XX ONETIME PRN PRN Reason: Prior to IV Start Stop: 01/19/17 18:00 Last Admin: 01/19/17 12:31 Dose: 0.25 ml Magnesium Hydroxide (Milk Of Magnesia) 30 ml PO BID PRN PRN Reason: Constipation Metoprolol Tartrate (Lopressor) 5 mg IVPUSH Q4H PRN PRN Reason: Tachycardia Midazolam HCl (Versed 1 Mg/Ml) Confirm Administered Dose 2 mg .ROUTE .STK-MED ONE Stop: 01/19/17 12:37 Morphine Sulfate (Duramorph Pf) Confirm Administered Dose 10 mg .ROUTE .STK-MED ONE Stop: 01/19/17 12:38 Morphine Sulfate (Morphine) 2 mg IVPUSH Q2H PRN PRN Reason: Breakthrough Pain Multivitamins (Thera) 1 each PO WITHBREAKFAST [facility] Last Admin: 01/20/17 06:16 Dose: 1 each Naloxone HCl (Narcan) 0.1 mg IVPUSH Q5M PRN PRN Reason: Oversedation Ondansetron HCl (Zofran) 4 mg IVPUSH Q6H PRN PRN Reason: Nausea/Vomiting Oxycodone/Acetaminophen (Percocet 325-5 Mg) 1 - 2 tab PO Q4H PRN PRN Reason: Pain Last Admin: 01/20/17 12:08 Dose: 2 tab Propofol (Diprivan 20 Ml) Confirm Administered Dose 400 mg .ROUTE .STK-MED ONE Stop: 01/19/17 12:37 Propofol (Diprivan 20 Ml) Confirm Administered Dose 200 mg .ROUTE .STK-MED ONE Stop: 01/19/17 12:52 Propofol (Diprivan 20 Ml) Confirm Administered Dose 200 mg .ROUTE .STK-MED ONE Stop: 01/19/17 16:21 Propofol (Diprivan 20 Ml) Confirm Administered Dose 200 mg .ROUTE .STK-MED ONE Stop: 01/19/17 16:46 Propofol (Diprivan 20 Ml) Confirm Administered Dose 200 mg .ROUTE .STK-MED ONE Stop: 01/19/17 17:06 Propofol (Diprivan 20 Ml) Confirm Administered Dose 200 mg .ROUTE .STK-MED ONE Stop: 01/19/17 17:21 Senna (Senna) 8.6 mg PO BID PRN PRN Reason: Constipation Simvastatin (Zocor) 20 mg PO DAILY [facility] Last Admin: 01/20/17 08:12 Dose: 20 mg Sodium Chloride (Saline Flush) 10 ml FLUSH ASDIRECTED PRN PRN Reason: Keep Vein Open Stop: 01/19/17 18:00 Tamsulosin HCl (Flomax) 0.4 mg PO ONETIME ONE Stop: 01/20/17 08:01 Last Admin: 01/20/17 08:11 Dose: 0.4 mg Tranexamic Acid (Cyklokapron) Confirm Administered Dose 1,000 mg .ROUTE .STK- MED ONE Stop: 01/19/17 13:26 Last Admin: 01/19/17 17:09 Dose: 1,000 mg Triamcinolone Acetonide (Kenalog-40) Confirm Administered Dose 80 mg .ROUTE .STK -MED ONE Stop: 01/19/17 13:26 Last Admin: 01/19/17 17:35 Dose: 80 mg Vancomycin HCl (Vancomycin) Confirm Administered Dose 1 gm .ROUTE .STK-MED ONE Stop: 01/19/17 13:26 Last Admin: 01/19/17 17:09 Dose: 1 gm Zolpidem Tartrate (Ambien) 5 mg PO DAILY PRN PRN Reason: Insomnia Last Admin: 01/19/17 20:58 Dose: 5 mg *Q Meaningful Use (DIS) - VTE *Q VTE Criteria *Q: - Stroke *Q Stroke Criteria *Q: - AMI *Q AMI Criteria *Q:
--- NOTE | 2017-01-27 13:21 | PCM.OPNOTE ---
- General Post-Op/Procedure Note Date of Surgery/Procedure: 01/19/17 Operative Procedure(s): left total hip arthroplasty with left knee steroid injection Pre Op Diagnosis: left hip and knee osteoarthrosis Post-Op Diagnosis: Same Anesthesia Technique: Local, MAC, Spinal Primary Surgeon: Elvin Russell Anesthesia Provider: Chris Cabrera Professor Of Physical Education: Мария Lima Professor Of Physical Education: Milagros Mullins EBL in mLs: 700 Complications: None Condition: Good
--- NOTE | 2017-01-27 14:24 | OR ---
DATE OF OPERATION: 01/19/2017 SURGEON: Elvin Russell MD OPERATION PERFORMED: 1. Left total hip arthroplasty. 2. Left knee intra-articular steroid injection. PREOPERATIVE DIAGNOSIS: Left hip and knee osteoarthrosis. POSTOPERATIVE DIAGNOSIS: Left hip and knee osteoarthrosis. ANESTHESIA: Technique: Local MAC with spinal. ANESTHESIA PROVIDER: Chris Cabrera CRNA. ASSISTANTS: Мария Lima PA-C and Milagros Mullins LPN. ESTIMATED BLOOD LOSS: 700 mL. COMPLICATIONS: None. CONDITION: Stable. IMPLANTS: 1. Maddi size 54 Tritanium acetabular cup. 2. [place] MDM components, 42 mm polyethylene liner with a 28 +4 mm ceramic head. 3. [place] Accolade II size 4 stem. DESCRIPTION OF PROCEDURE: The patient was identified in the preoperative holding area. Proper site was marked and identified by the surgeon. The patient was taken back to the operating theater where after adequate anesthesia, the patient was placed in the right lateral decubitus position. Axillary wedge was placed. All bony prominences were well padded. Left hip was then sterilely prepped and draped in usual sterile fashion. OR time-out was performed. The patient received 2 g IV Ancef. At this time, a standard posterior incision was made centered over the greater trochanter. This was taken down to the IT band and gluteal fascia, which was incised along the incisional length and Charnley retractor was then placed and the short external rotators were identified. All bleeders were cauterized. At this time, the piriformis tendon was identified and take down of the short external rotators as well as piriformis was taken down all the way to the level of the lesser trochanter. The hip was then dislocated. At this time, neck cut guide was then placed. The neck cut was then completed. It was found to be an adequate resection. This was sized on the back table. Anterior and posterior acetabular retractors were then placed as well as inferior acetabular retractors. The pulvinar as well as the labrum were then removed. Starting with a 46 reamer, I was able to ream up to a 54 which was found to have a good fit. A 54 mm trial was then placed and had adequate fixation. A 54 mm solid Tritanium acetabular cup was then impacted into place in a roughly 45 degrees of abduction, 10 degrees of anteversion. The MDM 42 mm liner was then impacted into place. At this time, attention was turned to the femur. The femoral elevator was placed, starter awl was placed down, a box chisel was used out laterally. Starting with the 0 broach, I was able to broach up to a size 4 which was found to be rotationally and vertically stable, 127 degree neck angle, and then trial components were placed. Standard +0 head was first done and leg lengths were found to be a minor amount short, so +4 was then taken through range of motion, was found to have adequate gnosticist of leg lengths, and we had good stability. At this time, the hip was dislocated. A size 4 Accolade II stem was then impacted into place along with 28 mm +4 ceramic head with a 42 mm polyethylene MDM components. Hip was then relocated. A 1 L dilute Betadine solution was irrigated through the hip along with 3 L of pulse lavage irrigation with Ancef. Periarticular injection was then completed. Two #5 Ethibond sutures were used for closure of the capsule and the short external rotators. A #2 barbed suture was used for closure of the IT band and gluteal fascia. A 2-0 Vicryl was used subcutaneously and Prineo was used for the skin. The patient tolerated the procedure well, was sent to PACU in stable condition. JULIETTE /[id number]
--- NOTE | 2017-01-28 08:16 | OR ---
DATE OF OPERATION: 01/19/2017 SURGEON: Elvin Russell MD ADDENDUM: The patient also received an intra-articular left knee injection under sterile technique, 2 mL 40 mg Kenalog and 4 mL of 0.25% Marcaine were injected under sterile technique to the left knee joint. The patient tolerated that as well after the total hip arthroplasty. MMODAL /[id number]
== END 2017-01-20 14:40 | disposition home or self-care (01) | DRG 301 ==
LOC: JD.MS 11:53
PROVIDERS: ADMIT Orthopaedic Surgery; ATTEND Orthopaedic Surgery
PROC: 0SRB02A Replacement of Left Hip Joint with Metal on Polyethylene Synthetic Substitute, Uncemented, Open Approach (ICD-10-PCS; principal; 2017-01-19)
PROC: 3E0U33Z Introduction of Anti-inflammatory into Joints, Percutaneous Approach (ICD-10-PCS; 2017-01-19)
PROC: 3E0U3BZ Introduction of Anesthetic Agent into Joints, Percutaneous Approach (ICD-10-PCS; 2017-01-19)
DX: M16.12 Unilateral primary osteoarthritis, left hip (principal); M17.12 Unilateral primary osteoarthritis, left knee; I95.81 Postprocedural hypotension; E78.5 Hyperlipidemia, unspecified; G62.9 Polyneuropathy, unspecified; Z87.820 Personal history of traumatic brain injury; F06.8 Other specified mental disorders due to known physiological condition; E66.9 Obesity, unspecified; Z68.34 Body mass index [BMI] 34.0-34.9, adult; F17.210 Nicotine dependence, cigarettes, uncomplicated; G89.29 Other chronic pain; M54.9 Dorsalgia, unspecified; Z79.82 Long term (current) use of aspirin; Z79.899 Other long term (current) drug therapy
CPT/HCPCS: 01214; 36415; 73501-26-LT; 73501-LT; 80053; 85027; 86850; 86900; 86901; 87641; 94762; 97116-GP; 97161-GP; 97165-GO; 97535-GO; A9270-GY; C1776; J0171; J0690; J0697; J1885; J2250; J2270; J2704; J3010; J3301; J3370; J3490; J7040; J7120

== ENCOUNTER 2018-06-28 11:26 | Emergency (ER) | payer BC, OTHER ==
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
[2018-06-28 11:48] VITALS: BP 176/116
[2018-06-28] MEDS ORDERED: Diphtheria,Pertussis(Acell),Tetanus Vaccine 0.5 ML Syringe IM ONE (12:09)
[2018-06-28] MEDS ORDERED: Lidocaine 1% 10 ML MDV INJECT ONE (12:20)
[2018-06-28] MEDS ORDERED: Cyclobenzaprine 10 MG Tab PO ONE (13:38)
--- NOTE | 2018-06-29 08:46 | CT ---
CT cervical spine Technique: Multiple axial sections were obtained from above C1 inferiorly to the bottom of T2. Reconstructed sagittal and coronal images were reviewed. Comparison: Prior cervical spine CT study of 06/29/16. Findings: Mild disc space narrowing is noted at C4-C5 with slight anterior osteophytes. Other disc spaces are fairly well preserved. Anterior osteophytes are also noted at C6-C7. Vertebral body heights are maintained. Slight degenerative apophyseal change is noted on the left side at C7-T1. No fracture is seen. No bony central or bony neural foraminal stenosis is seen. No abnormal subluxation is seen. Cervical spine shows lack of normal lordosis which may be positional. Impression: 1. Mild degenerative change. Nothing acute is appreciated on CT study of the cervical spine. Diagnostic code #2 I agree with preliminary report from [facility], finalized on 06/28/18, 2:33 PM Central Time
== END 2018-06-28 13:56 | disposition home or self-care (01) ==
LOC: JD.ED 11:26
DX: S01.01XA Laceration without foreign body of scalp, initial encounter (principal); S09.90XA Unspecified injury of head, initial encounter; S16.1XXA Strain of muscle, fascia and tendon at neck level, initial encounter; Z23 Encounter for immunization; W26.8XXA Contact with other sharp object(s), not elsewhere classified, initial encounter
CPT/HCPCS: 12002; 72125; 90471; 90700; 99284; A9270; J2001

== ENCOUNTER 2018-07-10 13:41 | Emergency (ER) | payer BC | END 2018-07-10 14:35 | LOC: JD.ED 13:41 | DX: S01.01XD Laceration without foreign body of scalp, subsequent encounter (principal) ==

== ENCOUNTER 2019-02-10 07:07 | Day surgery (SDC) | payer BC ==
[~2019-02-10 07:07] MED LIST changes: +Dexamethasone 4 MG/ML 5 ML MDV ONE; +Ketorolac 30 MG/ML SDV ONE; +Lactated Ringers 1,000 ML IV SCH; +Lactated Ringers 1,000 ML ONE; +Lidocaine 1% 4 ML ONE; +Lidocaine 1%/Sod Bicarbonate in NS 8.4% 1 ML Syringe IDERM PRN; -Lidocaine 1%/Sod Bicarbonate in NS 8.4% 1 ML Syringe PRN; +Midazolam 1 MG/ML 2 ML SDV ONE; +Ondansetron 4 MG/2 ML SDV ONE; +Propofol 200 MG/20 ML SDV ONE; +ceFAZolin 1 GM Vial ONE; +fentaNYL 100 MCG/2 ML SDV ONE
[2019-02-10] MEDS ORDERED: Bupivacaine 0.25% 10 ML SDV ONE (07:22)
[2019-02-10] MEDS ORDERED: Ketamine 500 mg/10 ML MDV ONE (08:02)
[2019-02-10] MEDS ORDERED: Propofol 200 MG/20 ML SDV ONE (08:07)
[2019-02-10] MEDS ORDERED: HYDROmorphone 0.5 MG/0.5 ML Syringe ONE (08:08)
[2019-02-10] MEDS ORDERED: diphenhydrAMINE 50 MG/ML SDV IVPUSH PRN (09:19)
[2019-02-10] MEDS ORDERED: HYDROmorphone 0.5 MG/0.5 ML Syringe IVPUSH PRN (09:19)
[2019-02-10] MEDS ORDERED: fentaNYL 100 MCG/2 ML SDV IVPUSH PRN (09:19)
[2019-02-10] MEDS ORDERED: Ondansetron 4 MG/2 ML SDV IVPUSH PRN (09:19)
--- NOTE | 2019-02-10 09:19 | PCM.POSTAN ---
POST ANESTHESIA ASSESSMENT - MENTAL STATUS Mental Status: Alert, Oriented - VITAL SIGNS Vital Signs: Last Vital Signs Temp 36.3 C 02/10/19 07:15 Pulse 83 02/10/19 07:15 Resp 16 02/10/19 07:15 BP 165/97 H 02/10/19 07:25 Pulse Ox 95 02/10/19 07:15 - RESPIRATORY Respiratory Status: Respiratory Rate WNL, Airway Patent, O2 Saturation Stable, Supplemental Oxygen - CARDIOVASCULAR CV Status: Pulse Rate WNL, Blood Pressure Stable - GASTROINTESTINAL GI Status: No Symptoms - PAIN Pain Score: 0 - POST OP HYDRATION Hydration Status: Adequate & Stable
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
[2019-02-10] MEDS ORDERED: Acetaminophen/HYDROcodone 325-5 MG Tab PO PRN (09:41)
--- NOTE | 2019-02-10 10:57 | PCM48HPAN ---
Post Anesthesia Note - EVALUATION WITHIN 48HRS OF ANESTHETIC Vital Signs in Normal Range: Yes Patient Participated in Evaluation: Yes Respiratory Function Stable: Yes Airway Patent: Yes Cardiovascular Function Stable: Yes Hydration Status Stable: Yes Pain Control Satisfactory: Yes Nausea and Vomiting Control Satisfactory: Yes Mental Status Recovered: Yes Vital Signs: Last Vital Signs
[2019-02-10 10:58] VITALS: BP 138/88; PULSE 71
--- NOTE | 2019-02-14 07:30 | PCM.OPNOTE ---
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
--- NOTE | 2019-02-14 08:24 | OR ---
DATE OF OPERATION: 02/10/2019 SURGEON: Elvin Russell MD OPERATION PERFORMED: Left ulnar nerve decompression at the elbow. PREOPERATIVE DIAGNOSIS: Left ulnar nerve compression neuropathy. POSTOPERATIVE DIAGNOSIS: Left ulnar nerve compression neuropathy. ANESTHESIA: General LMA with local. Primary surgeon ANESTHESIA PROVIDER: Dori Rader. AUTO SLIP COVER INSTALLER: Мария Lima PA-C. ESTIMATED BLOOD LOSS: 5 mL. COMPLICATIONS: None. CONDITION: Stable. DESCRIPTION OF PROCEDURE: The patient was identified in the preop holding area. Proper site was marked and identified by the surgeon. The patient was taken back to the operating theater, where after adequate anesthesia, the patient's left upper extremity was sterilely prepped and draped in the usual sterile fashion. OR time-out was performed. The patient received 2 g IV Ancef. At this time, a sterile tourniquet was applied to the left upper extremity. The left upper extremity was exsanguinated and tourniquet was insufflated to 225 mmHg. A standard curvilinear incision was made centered over the cubital tunnel up to the triceps fascia and then distally to the forearm fascia. At this time, an incision was made through the skin, blunt dissection was taken down. The nerve was identified up at the triceps fascia and the distal fascia and covering of the nerve was resected above the nerve. Care was taken to protect the nerve during the entire way. The patient did have significant tightness of the triceps fascia all the way proximally a significant way. This was released all the way back up until by manual palpation no longer had any signs of compression. This was then taken down distally over the cubital tunnel and the cubital tunnel roof was opened and the nerve was identified. It was found to have no adhesions and it was taken all the way down to the forearm fascia and this was then released over the top of the nerve. There were no signs of subluxation of the nerve after it was adequately decompressed as the elbow was taken through a range of motion. Adequate saline was irrigated through the wound. 2-0 Vicryl was used subcutaneously and regina were used for the skin. The patient was placed in a sterile soft dressing and a posterior slab splint and sent to PACU in stable condition. MMODAL /[id number]
== END 2019-02-10 10:55 | disposition home or self-care (01) ==
LOC: JD.SDS 07:07
PROVIDERS: ATTEND Orthopaedic Surgery
DX: G56.22 Lesion of ulnar nerve, left upper limb (principal); F17.210 Nicotine dependence, cigarettes, uncomplicated; M17.12 Unilateral primary osteoarthritis, left knee; E78.00 Pure hypercholesterolemia, unspecified; Z79.899 Other long term (current) drug therapy
CPT/HCPCS: 64718; A9270; J0690; J1100; J1170; J1885; J2001; J2250; J2405; J2704; J3010; J3490; J7120; 01810

== ENCOUNTER 2019-05-02 06:20 | Inpatient (IN) | payer BC, OTHER ==
[~2019-05-02 06:20] MED LIST changes: +Acetaminophen 325 MG Tab PO SCH; -Dexamethasone 4 MG/ML 5 ML MDV ONE; -Ketorolac 30 MG/ML SDV ONE; -Lactated Ringers 1,000 ML IV SCH; -Lactated Ringers 1,000 ML ONE; -Lidocaine 1% 4 ML ONE; -Lidocaine 1%/Sod Bicarbonate in NS 8.4% 1 ML Syringe IDERM PRN; -Midazolam 1 MG/ML 2 ML SDV ONE; -Ondansetron 4 MG/2 ML SDV ONE; +Pregabalin 25 MG Cap PO SCH; -Propofol 200 MG/20 ML SDV ONE; -Sodium Chloride 0.9% 10 ML Syringe FLUSH PRN; -ceFAZolin 1 GM Vial ONE; -fentaNYL 100 MCG/2 ML SDV ONE; +oxyCODONE ER 10 MG TAB.ER PO SCH
[2019-05-02] MEDS ORDERED: Propofol 200 MG/20 ML SDV ONE ×2 (06:27→07:52)
[2019-05-02] MEDS ORDERED: Midazolam 1 MG/ML 2 ML SDV ONE (06:27)
[2019-05-02] MEDS ORDERED: fentaNYL 100 MCG/2 ML SDV ONE (06:27)
[2019-05-02] MEDS ORDERED: ceFAZolin 1 GM Vial ONE (06:28)
[2019-05-02] MEDS ORDERED: Acetaminophen/oxyCODONE 325-5 MG Tab PO PRN (06:29)
[2019-05-02] MEDS ORDERED: Cyclobenzaprine 10 MG Tab PO PRN (06:29)
[2019-05-02] MEDS ORDERED: Sennosides 8.6 MG Tab PO PRN (06:30)
[2019-05-02] MEDS ORDERED: Naloxone 0.4 MG/ML SDV IVPUSH PRN (06:30)
[2019-05-02] MEDS ORDERED: Morphine 2 MG/ML Syringe IVPUSH PRN (06:30)
[2019-05-02] MEDS ORDERED: Magnesium Hydroxide 400 MG/5 ML Susp 30 ML Cup PO PRN (06:30)
[2019-05-02] MEDS ORDERED: Ondansetron 4 MG/2 ML SDV IVPUSH PRN ×2 (06:30→07:50)
[2019-05-02] MEDS ORDERED: Bisacodyl 5 MG Tab PO PRN (06:30)
[2019-05-02] MEDS ORDERED: Lidocaine 1% 4 ML ONE (06:33)
[2019-05-02] MEDS: Bupivacaine 0.25% 10 ML SDV ONE ×2 (06:33→08:18)
[2019-05-02] MEDS: Iodine/Sodium Iodide 2% Tincture 30 ML Bottle ONE ×2 (06:34→08:11)
[2019-05-02] MEDS: ceFAZolin 1 GM Vial ONE ×2 (06:34→08:12)
[2019-05-02] MEDS: Vancomycin 1 GM SDV ONE ×2 (06:35→08:21)
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
[2019-05-02] MEDS ORDERED: Sodium Chloride 0.9% 10 ML Syringe FLUSH PRN (07:00)
[2019-05-02] MEDS ORDERED: Lactated Ringers 1,000 ML IV SCH (07:00)
[2019-05-02] MEDS ORDERED: Lidocaine 1%/Sod Bicarbonate in NS 8.4% 1 ML Syringe IDERM PRN (07:00)
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
[2019-05-02] MEDS ORDERED: Ondansetron 4 MG/2 ML SDV ONE (07:24)
[2019-05-02] MEDS ORDERED: EPINEPHrine 1 MG/ML SDV ONE (07:24)
[2019-05-02] MEDS ORDERED: Ropivacaine 0.5% 5 MG/ML 30 ML SDV ONE (07:25)
[2019-05-02] MEDS ORDERED: ePHEDrine/Normal Saline 25 MG/5 ML Syringe ONE (07:32)
[2019-05-02] MEDS ORDERED: Lactated Ringers 1,000 ML ONE (07:47)
[2019-05-02] MEDS ORDERED: diphenhydrAMINE 50 MG/ML SDV IVPUSH PRN (07:50)
[2019-05-02] MEDS ORDERED: Morphine 8 MG, EPINEPHrine 0.3 MG, Cefuroxime 750 MG, Ketorolac 30 MG, Sodium Chloride ... ONE ×5 (08:00)
[2019-05-02] MEDS ORDERED: Ketorolac 30 MG/ML SDV ONE (08:50)
--- NOTE | 2019-05-02 08:55 | PCM.POSTAN ---
POST ANESTHESIA ASSESSMENT - MENTAL STATUS Mental Status: Alert, Oriented - VITAL SIGNS Vital Signs: Last Vital Signs Temp 36.6 C 05/02/19 08:47 Pulse 75 05/02/19 08:47 Resp 14 05/02/19 08:47 BP 98/60 05/02/19 08:47 Pulse Ox 95 05/02/19 08:47 - RESPIRATORY Respiratory Status: Respiratory Rate WNL, Airway Patent, O2 Saturation Stable - CARDIOVASCULAR CV Status: Pulse Rate WNL, Blood Pressure Stable - GASTROINTESTINAL GI Status: No Symptoms - POST OP HYDRATION Hydration Status: Adequate & Stable
--- NOTE | 2019-05-02 09:56 | PCM48HPAN ---
Post Anesthesia Note - EVALUATION WITHIN 48HRS OF ANESTHETIC Vital Signs in Normal Range: Yes Patient Participated in Evaluation: Yes Respiratory Function Stable: Yes Airway Patent: Yes Cardiovascular Function Stable: Yes Hydration Status Stable: Yes Pain Control Satisfactory: Yes Nausea and Vomiting Control Satisfactory: Yes Mental Status Recovered: Yes Vital Signs: Last Vital Signs Temp 36.6 C 05/02/19 09:24 Pulse 67 05/02/19 09:24 Resp 16 05/02/19 09:24 BP 95/55 L 05/02/19 09:24 Pulse Ox 97 05/02/19 09:24
--- NOTE | 2019-05-02 10:33 | CR ---
Left knee: AP and lateral views of the left knee were obtained. Comparison: Prior MRI left knee study of 03/07/19. Knee prosthesis is seen. Components are aligned. Soft tissue air is noted from the surgical procedure. Underlying bony structures are intact. Impression: 1. Satisfactory radiographic appearance of recently placed left knee prosthesis. Diagnostic code #2 This report was dictated in [place] Standard Time
[2019-05-02] MEDS: oxyCODONE 5 MG Tab PO PRN ×3 (11:18→22:30)
[2019-05-02] MEDS: Famotidine 20 MG Tab PO SCH ×2 (11:18→18:14)
--- NOTE | 2019-05-02 12:48 | PCM.SN ---
- Free Text/Narrative Note: Left selective femoral nerve block at the adductor canal for post-procedure pain control Time Out: 854 Start: 855 End: 900 Chart reviewed. Consent signed. Questions answered. Appropriate monitors applied. Time out performed. Left mid-shaft femur evaluated with ultrasound. Scanning medially femur, I was able to identify the femoral artery in the adductor canal. The saphenous nerve was lateral to the artery. The skin was prepped lateral to the ultrasound probe with chlorahexadine. The 21ga 4 insulated block needle was inserted under direct ultrasound guidance into the adductor canal. 20mL of 0.5% ropivacaine with 1:200,000 epinephrine was injected cirmcumferentially about the nerve with intermittent negative aspiration every 5mL. Patient tolerated the procedure well. No complications noted. See pictures on progress note and vital signs on nurses notes. Block completed postoperatively. Zoe Marin CRNA
[2019-05-02] MEDS ORDERED: Nicotine 21 MG/24 Hr Patch TRDERM PRN (14:43)
[2019-05-02] MEDS ORDERED: Ketorolac 15 MG/ML SDV IVPUSH PRN (15:00)
[2019-05-02] MEDS: ceFAZolin 2 GM in Premix Bag 1 BAG IV SCH ×2 (16:02→22:30)
[2019-05-02] MEDS: Gabapentin 600 MG Tab PO SCH ×2 (16:02→20:59)
[2019-05-02] MEDS: Docusate Sodium 100 MG Cap PO SCH (20:59)
[2019-05-02] MEDS ORDERED: Cholecalciferol (Vitamin D3) 5,000 UNIT Tab PO SCH (21:00)
[2019-05-02] MEDS ORDERED: Acetaminophen 325 MG Tab PO PRN (21:32)
[2019-05-03] MEDS: oxyCODONE 5 MG Tab PO PRN ×2 (02:59→09:04)
[2019-05-03] MEDS: ceFAZolin 2 GM in Premix Bag 1 BAG IV SCH (06:13)
[2019-05-03] MEDS: Famotidine 20 MG Tab PO SCH (06:14)
--- NOTE | 2019-05-03 07:00 | PCM.CONSN ---
- General Info Date of Service: 05/03/19 Admission Dx/Problem (Free Text): Admission Diagnosis/Problem Admission Diagnosis/Problem Osteoarthritis of knee Functional Status: Reports: Pain Controlled, Tolerating Diet, Ambulating, Urinating, Incentive Spirometry. Denies: New Symptoms - Review of Systems General: Reports: No Symptoms. Denies: Fever, Chills HEENT: Reports: Headaches (Refusing mediations ). Denies: Sore Throat Pulmonary: Reports: No Symptoms. Denies: Shortness of Breath, Cough, Sputum, Wheezing Cardiovascular: Reports: No Symptoms. Denies: Chest Pain, Palpitations, Dyspnea on Exertion Gastrointestinal: Reports: Nausea (Earlier but resolved after medication). Denies: Abdominal Pain, Constipation, Diarrhea, Vomiting Genitourinary: Reports: No Symptoms. Denies: Pain Musculoskeletal: Reports: Leg Pain (left ) Skin: Reports: No Symptoms. Denies: Cyanosis Neurological: Reports: No Symptoms. Denies: Confusion, Pre-Existing Deficit, Difficulty Walking, Gait Disturbance Psychiatric: Reports: No Symptoms - Patient Data Vitals - Most Recent: Last Vital Signs Temp 99.0 F 05/03/19 03:00 Pulse 103 H 05/03/19 03:00 Resp 18 05/03/19 03:00 BP 124/67 05/03/19 03:00 Pulse Ox 92 L 05/03/19 03:00 Weight - Most Recent: 271 lb 3.2 oz I&O - Last 24 Hours: Intake & Output 05/02/19 05/02/19 05/03/19 14:59 22:59 06:59 Intake Total 400 1240 1800 Output Total 600 Balance 533 460 6940 Lab Results Last 24 Hours: Laboratory Results - last 24 hr 05/03/19 Range/Units 05:13 WBC 9.86 H (4.23-9.07) K/mm3 RBC 4.12 L (4.63-6.08) M/mm3 Hgb 13.0 L (13.7-17.5) gm/dl Hct 39.1 L (40.1-51.0) % MCV 94.9 H (79.0-92.2) fl MCH 31.6 (25.7-32.2) pg MCHC 33.2 (32.2-35.5) g/dl RDW Std Deviation 42.9 (35.1-43.9) fL Plt Count 209 (163-337) K/mm3 MPV 9.7 (9.4-12.3) fl Med Orders - Current: Current Medications Acetaminophen (Tylenol) 650 mg PO Q4H PRN PRN Reason: Pain (mild 1-3) Last Admin: 05/02/19 21:40 Dose: 650 mg Bisacodyl (Dulcolax) 5 mg PO DAILY PRN PRN Reason: Constipation Cholecalciferol (Vitamin D3) 5,000 unit PO BEDTIME [facility] Last Admin: 05/02/19 20:59 Dose: 5,000 unit Cyanocobalamin (Vitamin B12) 5,000 mcg PO DAILY [facility] Cyclobenzaprine HCl (Flexeril) 10 mg PO TID PRN PRN Reason: Spasms Docusate Sodium (Colace) 100 mg PO BID [facility] Last Admin: 05/02/19 20:59 Dose: 100 mg Famotidine (Pepcid) 20 mg PO Q12H [facility] Last Admin: 05/03/19 06:14 Dose: 20 mg Gabapentin (Neurontin) 600 mg PO TID [facility] Last Admin: 05/02/19 20:59 Dose: 600 mg Cefazolin Sodium/Dextrose 2 gm (/ Premix) 50 mls @ 100 mls/hr IV Q8H [facility] Stop: 05/03/19 07:29 Last Admin: 05/03/19 06:13 Dose: 100 mls/hr Ketorolac Tromethamine (Toradol) 15 mg IVPUSH Q6H PRN PRN Reason: Pain Magnesium Oxide (Magnesium Oxide) 400 mg PO DAILY [facility] Miscellaneous Information (Remove Patch) 0 ea TRDERM DAILY PRN PRN Reason: REMOVE OLD NICOTINE PATCH Morphine Sulfate (Morphine) 2 mg IVPUSH Q2H PRN PRN Reason: Breakthrough Pain Naloxone HCl (Narcan) 0.1 mg IVPUSH Q5M PRN PRN Reason: Oversedation Nicotine (Habitrol) 21 mg TRDERM DAILY PRN PRN Reason: Nicotine craving Ondansetron HCl (Zofran) 4 mg IVPUSH Q6H PRN PRN Reason: Nausea/Vomiting Oxycodone HCl (Oxycodone) 5 - 10 mg PO Q4H PRN PRN Reason: Pain Last Admin: 05/03/19 02:59 Dose: 10 mg Potassium Chloride (Klor-Con 10) 10 meq PO DAILY [facility] Pyridoxine HCl (Vitamin B6-Pyridoxine) 50 mg PO DAILY [facility] Rivaroxaban (Xarelto) 10 mg PO DAILY [facility] Senna (Senna) 8.6 mg PO BID PRN PRN Reason: Constipation Discontinued Medications Acetaminophen (Tylenol) 975 mg PO ONETIME [facility] Last Admin: 05/02/19 06:37 Dose: 975 mg Bupivacaine HCl (Sensorcaine-Mpf 0.25%) Confirm Administered Dose 30 ml .ROUTE .STK-MED ONE Stop: 05/02/19 06:20 Last Admin: 05/02/19 08:18 Dose: 30 ml Cefazolin Sodium (Ancef) Confirm Administered Dose 2 gm .ROUTE .STK-MED ONE Stop: 05/02/19 06:19 Last Admin: 05/02/19 08:12 Dose: 2 gm Cefazolin Sodium (Ancef) Confirm Administered Dose 2 gm .ROUTE .STK-MED ONE Stop: 05/02/19 06:29 Morphine Sulfate 8 mg/Epinephrine HCl 0.3 mg/Cefuroxime Sodium 750 mg/Ketorolac Tromethamine 30 mg/Sodium Chloride 27.9 ml 0 mg .XX ONETIME ONE Stop: 05/02/19 08:01 Last Admin: 05/02/19 08:18 Dose: 788.3 mg Diphenhydramine HCl (Benadryl) 25 mg IVPUSH Q6H PRN PRN Reason: pruritis Ephedrine Sulfate (Ephedrine In Ns) Confirm Administered Dose 25 mg .ROUTE .STK- MED ONE Stop: 05/02/19 07:33 Epinephrine HCl (Adrenalin) Confirm Administered Dose 1 mg .ROUTE .STK-MED ONE Stop: 05/02/19 07:25 Fentanyl (Sublimaze) Confirm Administered Dose 100 mcg .ROUTE .STK-MED ONE Stop: 05/02/19 06:28 Lactated Ringer's (Ringers, Lactated) 1,000 mls @ 125 mls/hr IV ASDIRECTED [facility] Stop: 05/02/19 23:00 Last Admin: 05/02/19 06:54 Dose: 125 mls/hr Lidocaine HCl (Xylocaine-Mpf 1%) Confirm Administered Dose 4 mls @ as directed .ROUTE .STK-MED ONE Stop: 05/02/19 06:34 Lactated Ringer's (Ringers, Lactated) Confirm Administered Dose 1,000 mls @ as directed .ROUTE .STK-MED ONE Stop: 05/02/19 07:48 Iodine (Iodine 2% Mild Tincture) Confirm Administered Dose 30 ml .ROUTE .STK- MED ONE Stop: 05/02/19 06:19 Last Admin: 05/02/19 08:11 Dose: 18 ml Ketorolac Tromethamine (Toradol) Confirm Administered Dose 30 mg .ROUTE .STK- MED ONE Stop: 05/02/19 08:51 Lidocaine/Sodium Bicarbonate (Buffered Lidocaine 1% In Ns 8.4%) 0.25 ml IDERM ONETIME PRN PRN Reason: Prior to IV Start Stop: 05/02/19 18:00 Last Admin: 05/02/19 06:54 Dose: 0.25 ml Magnesium Hydroxide (Milk Of Magnesia) 30 ml PO BID PRN PRN Reason: Constipation Midazolam HCl (Versed 1 Mg/Ml) Confirm Administered Dose 2 mg .ROUTE .STK-MED ONE Stop: 05/02/19 06:28 Ondansetron HCl (Zofran) Confirm Administered Dose 4 mg .ROUTE .STK-MED ONE Stop: 05/02/19 07:25 Ondansetron HCl (Zofran) 4 mg IVPUSH ONETIME PRN PRN Reason: Nausea/Vomiting Oxycodone HCl (Oxycontin) 10 mg PO ONETIME [facility] Last Admin: 05/02/19 06:38 Dose: 10 mg Oxycodone/Acetaminophen (Percocet 325-5 Mg) 1 - 2 tab PO Q4H PRN PRN Reason: Pain Pregabalin (Lyrica) 50 mg PO ONETIME [facility] Last Admin: 05/02/19 06:38 Dose: 50 mg Propofol (Diprivan 20 Ml) Confirm Administered Dose 200 mg .ROUTE .STK-MED ONE Stop: 05/02/19 06:28 Propofol (Diprivan 20 Ml) Confirm Administered Dose 200 mg .ROUTE .STK-MED ONE Stop: 05/02/19 07:53 Ropivacaine (Naropin 0.5%) Confirm Administered Dose 30 ml .ROUTE .STK-MED ONE Stop: 05/02/19 07:26 Sodium Chloride (Saline Flush) 10 ml FLUSH ASDIRECTED PRN PRN Reason: Keep Vein Open Stop: 05/02/19 18:00 Tranexamic Acid (Cyklokapron) Confirm Administered Dose 1,000 mg .ROUTE .STK- MED ONE Stop: 05/02/19 06:19 Last Admin: 05/02/19 08:21 Dose: 1,000 mg Vancomycin HCl (Vancomycin) Confirm Administered Dose 1 gm .ROUTE .STK-MED ONE Stop: 05/02/19 06:19 Last Admin: 05/02/19 08:21 Dose: 1 gm - Exam Quality Assessment: DVT Prophylaxis. No: Supplemental Oxygen General: Alert, Oriented, Cooperative, No Acute Distress HEENT: Pupils Equal, Pupils Reactive, Mucous Membr. Moist/[employer] Neck: Supple, Trachea Midline Lungs: Clear to Auscultation, Normal Respiratory Effort Cardiovascular: Regular Rate, Regular Rhythm GI/Abdominal Exam: Normal Bowel Sounds, Soft, Non-Tender, No Distention, No Abnormal Bruit (Male) Exam: Deferred Back Exam: Normal Inspection, Full Range of Motion Extremities: No Pedal Edema, Normal Capillary Refill, Leg Pain (left), Limited Range of Motion, Other (Bandage in place on left leg. Cooling pack in place. ) Peripheral Pulses: 2+: Radial (L), Radial (R), Dorsalis Pedis (L), Dorsalis Pedis (R) Skin: Warm, Dry, Intact Wound/Incisions: Dressing Dry and Intact Neurological: No New Focal Deficit Psy/Mental Status: Alert, Normal Affect, Normal Mood Sepsis Event Note - Evaluation Current Stage of Sepsis: Ruled Out Reason for Ruling Out Sepsis: Not applicable Consult PN Assessment/Plan POD#: 1 Procedures: Procedures AQUATIC THERAPY/EXERCISES (10/16/16) BONE IMAGING WHOLE BODY (11/20/16) CT LOWER EXTREMITY W/O DYE (12/04/16) CT NECK SPINE W/O DYE (06/28/18) CULTURE OTHR SPECIMN AEROBIC (05/02/14) DRESS/DEBRID P-THICK BURN S (12/21/13) DTAP VACCINE < 7 YRS IM (06/28/18) EMERGENCY DEPT VISIT (06/28/18) EMERGENCY DEPT VISIT (12/21/13) IMMUNIZATION ADMIN (06/28/18) MANUAL THERAPY 1/> REGIONS (10/16/16) MR-STAPH DNA AMP PROBE (02/08/19) MRI JNT OF LWR EXTRE W/O DYE (03/07/19) MRI LUMBAR SPINE W/O DYE (07/30/16) MRI NECK SPINE W/O DYE (02/08/19) PT EVAL MOD COMPLEX 30 MIN (02/20/17) REVISE ULNAR NERVE AT ELBOW (02/10/19) RPR S/N/AX/GEN/TRNK2.6-7.5CM (06/28/18) THERAPEUTIC EXERCISES (02/20/17) ULTRASOUND THERAPY (10/16/16) X-RAY EXAM HIP UNI 2-3 VIEWS (09/10/16) X-RAY EXAM L-S SPINE 2/3 VWS (06/02/17) X-RAY EXAM NECK SPINE 4/5VWS (02/08/19) X-RAY EXAM OF KNEE 3 (09/10/16) X-RAY EXAM OF PELVIS (07/14/16) X-RAY EXAM OF SKULL (03/07/19) (1) S/P total knee arthroplasty SNOMED Code(s): 0466045202153, 334038344, 7139851452299 Code(s): Z96.659 - PRESENCE OF UNSPECIFIED ARTIFICIAL KNEE JOINT Priority: High Current Visit: Yes Qualifiers: Laterality: left Qualified Code(s): Z96.652 - Presence of left artificial knee joint (2) Obesity (BMI 30-39.9) SNOMED Code(s): 555430377, 268284373 Code(s): E66.9 - OBESITY, UNSPECIFIED Priority: Medium Current Visit: Yes (3) Tobacco use disorder SNOMED Code(s): 506638990 Code(s): F17.200 - NICOTINE DEPENDENCE, UNSPECIFIED, UNCOMPLICATED Priority : Medium Current Visit: Yes (4) Dyslipidemia SNOMED Code(s): 520835930 Code(s): E78.5 - HYPERLIPIDEMIA, UNSPECIFIED Priority: Low Current Visit : No (5) Chronic back pain SNOMED Code(s): 486266927 Code(s): M54.9 - DORSALGIA, UNSPECIFIED; G89.29 - OTHER CHRONIC PAIN Priority: Low Current Visit: No Qualifiers: Back pain location: back pain in unspecified location Back pain laterality : unspecified Qualified Code(s): M54.9 - Dorsalgia, unspecified; G89.29 - Other chronic pain Problem List Initiated/Reviewed/Updated: Yes My Orders Last 24 Hours: My Active Orders 05/02/19 14:43 Nicotine [Habitrol] 21 mg TRDERM DAILY PRN 05/03/19 14:45 Remove Patch 0 ea TRDERM DAILY PRN Plan: I/P: Acute: S/P left total knee arthroplasty - post-operative day 1 -DVT prophylaxis and pain management per primary care team -PT/OT -IS/RT -Monitor oxygen saturation -Titrate oxygen as needed -Home medications reviewed -Vital signs stable -Monitor labs -Pre-operative Hgb was 16.6; Now 13.0 -Pre-operative GFR was 73; Now >60 -Pre-operative AST was 48; Now 17 -Pre-operative ALT was 97; Now 62 -Pre-operative Alk Phos was 81; Now 64 -Deemed moderate surgical risk by PCP Tobacco use disorder -Cessation counseling -Nicotine patch - patient refusing Chronic: Dyslipidemia obesity LBP memory complications Hypokalemia Hypomagnesemia Plan: CM for discharge planning GI prophylaxis Home medications as indicated Other orders as listed above Routine AM labs He is a full code. His PCP is Dr. Yeboah From a hospitalist standpoint Herminio is doing well. He has been up ambulating and working with therapies. He is off of oxygen and has urinated. He has tolerated a diet. He has been utilizing his IS. His labs and vital signs remain stable. He is cleared for discharge pending primary team and PT/OT agreement. Thank you for allowing us to participate in the care of this patient!!
[2019-05-03] MEDS ORDERED: Vitamin B6-pyridOXINE 50 MG Tab PO SCH (09:00)
[2019-05-03] MEDS ORDERED: Potassium Chloride 10 MEQ Tab.ER PO SCH (09:00)
[2019-05-03] MEDS ORDERED: Cyanocobalamin (Vitamin B12) 1,000 MCG Tab PO SCH (09:00)
[2019-05-03] MEDS ORDERED: Magnesium Oxide 400 MG Tab PO SCH (09:00)
[2019-05-03] MEDS ORDERED: Rivaroxaban 10 MG Tab PO SCH (09:00)
[2019-05-03 09:03] VITALS: BP 130/84; PULSE 98
[2019-05-03] MEDS: Docusate Sodium 100 MG Cap PO SCH (09:03)
[2019-05-03] MEDS: Gabapentin 600 MG Tab PO SCH (09:06)
--- NOTE | 2019-05-03 11:38 | PCM48HPAN ---
Post Anesthesia Note - EVALUATION WITHIN 48HRS OF ANESTHETIC Vital Signs in Normal Range: Yes Patient Participated in Evaluation: Yes Respiratory Function Stable: Yes Airway Patent: Yes Cardiovascular Function Stable: Yes Hydration Status Stable: Yes Pain Control Satisfactory: Yes Nausea and Vomiting Control Satisfactory: Yes Mental Status Recovered: Yes Vital Signs: Last Vital Signs Temp 37.2 C 05/03/19 08:46 Pulse 98 05/03/19 08:46 Resp 20 05/03/19 08:46 BP 130/84 05/03/19 08:46 Pulse Ox 93 L 05/03/19 08:46
--- NOTE | 2019-05-03 12:13 | PCM.SURGPN ---
- General Info Date of Service: 05/03/19 POD#: 1 Functional Status: Reports: Pain Controlled, Tolerating Diet, Ambulating, Urinating, Incentive Spirometry, Other (The pt states he has ambulated "a lot" in his room and halls. ) - Patient Data Vitals - Most Recent: Last Vital Signs Temp 99.0 F 05/03/19 08:46 Pulse 98 05/03/19 08:46 Resp 20 05/03/19 08:46 BP 130/84 05/03/19 08:46 Pulse Ox 93 L 05/03/19 08:46 Weight - Most Recent: 271 lb 3.2 oz I&O - Last 24 Hours: Intake & Output 05/02/19 05/03/19 05/03/19 22:59 06:59 14:59 Intake Total 1240 1800 Output Total 600 Balance 640 1800 Lab Results Last 24 Hrs: Laboratory Results - last 24 hr 05/03/19 05/03/19 Range/Units 05:13 05:13 WBC 9.86 H (4.23-9.07) K/mm3 RBC 4.12 L (4.63-6.08) M/mm3 Hgb 13.0 L (13.7-17.5) gm/dl Hct 39.1 L (40.1-51.0) % MCV 94.9 H (79.0-92.2) fl MCH 31.6 (25.7-32.2) pg MCHC 33.2 (32.2-35.5) g/dl RDW Std Deviation 42.9 (35.1-43.9) fL Plt Count 209 (163-337) K/mm3 MPV 9.7 (9.4-12.3) fl Sodium 141 (136-145) mEq/L Potassium 3.8 (3.5-5.1) mEq/L Chloride 107 (98-107) mEq/L Carbon Dioxide 26 (21-32) mEq/L Anion Gap 11.8 (5-15) BUN 10 (7-18) mg/dL Creatinine 1.0 (0.7-1.3) mg/dL Est Cr Clr Drug Dosing 100.40 mL/min Estimated GFR (MDRD) > 60 (>60) mL/min BUN/Creatinine Ratio 10.0 L (14-18) Glucose 132 H (74-106) mg/dL Calcium 8.1 L (8.5-10.1) mg/dL Total Bilirubin 0.4 (0.2-1.0) mg/dL AST 17 (15-37) U/L ALT 62 (16-63) U/L Alkaline Phosphatase 64 (46-116) U/L Total Protein 5.9 L (6.4-8.2) g/dl Albumin 3.3 L (3.4-5.0) g/dl Globulin 2.6 gm/dL Albumin/Globulin Ratio 1.3 (1-2) Med Orders - Current: Current Medications Acetaminophen (Tylenol) 650 mg PO Q4H PRN PRN Reason: Pain (mild 1-3) Last Admin: 05/02/19 21:40 Dose: 650 mg Bisacodyl (Dulcolax) 5 mg PO DAILY PRN PRN Reason: Constipation Cholecalciferol (Vitamin D3) 5,000 unit PO BEDTIME [facility] Last Admin: 05/02/19 20:59 Dose: 5,000 unit Cyanocobalamin (Vitamin B12) 5,000 mcg PO DAILY [facility] Last Admin: 05/03/19 09:02 Dose: 5,000 mcg Cyclobenzaprine HCl (Flexeril) 10 mg PO TID PRN PRN Reason: Spasms Docusate Sodium (Colace) 100 mg PO BID [facility] Last Admin: 05/03/19 09:03 Dose: 100 mg Famotidine (Pepcid) 20 mg PO Q12H [facility] Last Admin: 05/03/19 06:14 Dose: 20 mg Gabapentin (Neurontin) 600 mg PO TID [facility] Last Admin: 05/03/19 09:06 Dose: Not Given Ketorolac Tromethamine (Toradol) 15 mg IVPUSH Q6H PRN PRN Reason: Pain Magnesium Oxide (Magnesium Oxide) 400 mg PO DAILY [facility] Last Admin: 05/03/19 09:03 Dose: 400 mg Miscellaneous Information (Remove Patch) 0 ea TRDERM DAILY PRN PRN Reason: REMOVE OLD NICOTINE PATCH Morphine Sulfate (Morphine) 2 mg IVPUSH Q2H PRN PRN Reason: Breakthrough Pain Naloxone HCl (Narcan) 0.1 mg IVPUSH Q5M PRN PRN Reason: Oversedation Nicotine (Habitrol) 21 mg TRDERM DAILY PRN PRN Reason: Nicotine craving Ondansetron HCl (Zofran) 4 mg IVPUSH Q6H PRN PRN Reason: Nausea/Vomiting Last Admin: 05/03/19 08:55 Dose: 4 mg Oxycodone HCl (Oxycodone) 5 - 10 mg PO Q4H PRN PRN Reason: Pain Last Admin: 05/03/19 09:04 Dose: 10 mg Potassium Chloride (Klor-Con 10) 10 meq PO DAILY [facility] Last Admin: 05/03/19 09:03 Dose: 10 meq Pyridoxine HCl (Vitamin B6-Pyridoxine) 50 mg PO DAILY [facility] Last Admin: 05/03/19 09:03 Dose: 50 mg Rivaroxaban (Xarelto) 10 mg PO DAILY [facility] Last Admin: 05/03/19 09:03 Dose: 10 mg Senna (Senna) 8.6 mg PO BID PRN PRN Reason: Constipation Discontinued Medications Acetaminophen (Tylenol) 975 mg PO ONETIME [facility] Last Admin: 05/02/19 06:37 Dose: 975 mg Bupivacaine HCl (Sensorcaine-Mpf 0.25%) Confirm Administered Dose 30 ml .ROUTE .STK-MED ONE Stop: 05/02/19 06:20 Last Admin: 05/02/19 08:18 Dose: 30 ml Cefazolin Sodium (Ancef) Confirm Administered Dose 2 gm .ROUTE .STK-MED ONE Stop: 05/02/19 06:19 Last Admin: 05/02/19 08:12 Dose: 2 gm Cefazolin Sodium (Ancef) Confirm Administered Dose 2 gm .ROUTE .STK-MED ONE Stop: 05/02/19 06:29 Morphine Sulfate 8 mg/Epinephrine HCl 0.3 mg/Cefuroxime Sodium 750 mg/Ketorolac Tromethamine 30 mg/Sodium Chloride 27.9 ml 0 mg .XX ONETIME ONE Stop: 05/02/19 08:01 Last Admin: 05/02/19 08:18 Dose: 788.3 mg Diphenhydramine HCl (Benadryl) 25 mg IVPUSH Q6H PRN PRN Reason: pruritis Ephedrine Sulfate (Ephedrine In Ns) Confirm Administered Dose 25 mg .ROUTE .STK- MED ONE Stop: 05/02/19 07:33 Epinephrine HCl (Adrenalin) Confirm Administered Dose 1 mg .ROUTE .STK-MED ONE Stop: 05/02/19 07:25 Fentanyl (Sublimaze) Confirm Administered Dose 100 mcg .ROUTE .STK-MED ONE Stop: 05/02/19 06:28 Lactated Ringer's (Ringers, Lactated) 1,000 mls @ 125 mls/hr IV ASDIRECTED [facility] Stop: 05/02/19 23:00 Last Admin: 05/02/19 06:54 Dose: 125 mls/hr Cefazolin Sodium/Dextrose 2 gm (/ Premix) 50 mls @ 100 mls/hr IV Q8H [facility] Stop: 05/03/19 07:29 Last Admin: 05/03/19 06:13 Dose: 100 mls/hr Lidocaine HCl (Xylocaine-Mpf 1%) Confirm Administered Dose 4 mls @ as directed .ROUTE .STK-MED ONE Stop: 05/02/19 06:34 Lactated Ringer's (Ringers, Lactated) Confirm Administered Dose 1,000 mls @ as directed .ROUTE .STK-MED ONE Stop: 05/02/19 07:48 Iodine (Iodine 2% Mild Tincture) Confirm Administered Dose 30 ml .ROUTE .STK- MED ONE Stop: 05/02/19 06:19 Last Admin: 05/02/19 08:11 Dose: 18 ml Ketorolac Tromethamine (Toradol) Confirm Administered Dose 30 mg .ROUTE .STK- MED ONE Stop: 05/02/19 08:51 Lidocaine/Sodium Bicarbonate (Buffered Lidocaine 1% In Ns 8.4%) 0.25 ml IDERM ONETIME PRN PRN Reason: Prior to IV Start Stop: 05/02/19 18:00 Last Admin: 05/02/19 06:54 Dose: 0.25 ml Magnesium Hydroxide (Milk Of Magnesia) 30 ml PO BID PRN PRN Reason: Constipation Midazolam HCl (Versed 1 Mg/Ml) Confirm Administered Dose 2 mg .ROUTE .STK-MED ONE Stop: 05/02/19 06:28 Ondansetron HCl (Zofran) Confirm Administered Dose 4 mg .ROUTE .STK-MED ONE Stop: 05/02/19 07:25 Ondansetron HCl (Zofran) 4 mg IVPUSH ONETIME PRN PRN Reason: Nausea/Vomiting Oxycodone HCl (Oxycontin) 10 mg PO ONETIME [facility] Last Admin: 05/02/19 06:38 Dose: 10 mg Oxycodone/Acetaminophen (Percocet 325-5 Mg) 1 - 2 tab PO Q4H PRN PRN Reason: Pain Pregabalin (Lyrica) 50 mg PO ONETIME [facility] Last Admin: 05/02/19 06:38 Dose: 50 mg Propofol (Diprivan 20 Ml) Confirm Administered Dose 200 mg .ROUTE .STK-MED ONE Stop: 05/02/19 06:28 Propofol (Diprivan 20 Ml) Confirm Administered Dose 200 mg .ROUTE .STK-MED ONE Stop: 05/02/19 07:53 Ropivacaine (Naropin 0.5%) Confirm Administered Dose 30 ml .ROUTE .STK-MED ONE Stop: 05/02/19 07:26 Sodium Chloride (Saline Flush) 10 ml FLUSH ASDIRECTED PRN PRN Reason: Keep Vein Open Stop: 05/02/19 18:00 Tranexamic Acid (Cyklokapron) Confirm Administered Dose 1,000 mg .ROUTE .STK- MED ONE Stop: 05/02/19 06:19 Last Admin: 05/02/19 08:21 Dose: 1,000 mg Vancomycin HCl (Vancomycin) Confirm Administered Dose 1 gm .ROUTE .STK-MED ONE Stop: 05/02/19 06:19 Last Admin: 05/02/19 08:21 Dose: 1 gm - Exam Wound/Incisions: Dressing Dry and Intact General: Alert, Cooperative, No Acute Distress Lungs: Normal Respiratory Effort Extremities: Other (NVS intact for BLE. Dina's negative for BLE. ) Sepsis Event Note - Evaluation Sepsis Screening Result: No Definite Risk - Focused Exam Vital Signs: Vital Signs Temp Pulse Resp BP Pulse Ox 05/03/19 08:46 99.0 F 98 20 130/84 93 L 05/03/19 03:00 99.0 F 103 H 18 124/67 92 L Date Exam was Performed: 05/03/19 Time Exam was Performed: 12:42 - Problem List Review Problem List Initiated/Reviewed/Updated: Yes - My Orders Last 24 Hours: Active Orders 24 hr Category Date Time Status Ready for Discharge [RC] PER UNIT ROUTINE Care 05/03/19 08:36 Active Acetaminophen [Tylenol] Med 05/02/19 21:32 Active 650 mg PO Q4H PRN Cholecalciferol (Vitamin D3) [Vitamin D3] Med 05/02/19 21:00 Active 5,000 unit PO BEDTIME Cyanocobalamin (Vitamin B12) [Vitamin B12] Med 05/03/19 09:00 Active 5,000 mcg PO DAILY Docusate Sodium [Colace] Med 05/02/19 21:00 Active 100 mg PO BID Gabapentin [Neurontin] Med 05/02/19 15:00 Active 600 mg PO TID Ketorolac [Toradol] Med 05/02/19 15:00 Active 15 mg IVPUSH Q6H PRN Magnesium Oxide Med 05/03/19 09:00 Active 400 mg PO DAILY Nicotine [Habitrol] Med 05/02/19 14:43 Active 21 mg TRDERM DAILY PRN Potassium Chloride [Klor-Con 10] Med 05/03/19 09:00 Active 10 meq PO DAILY Remove Patch Med 05/03/19 14:45 Active 0 ea TRDERM DAILY PRN Rivaroxaban [Xarelto] Med 05/03/19 09:00 Active 10 mg PO DAILY Vitamin B6-pyridOXINE Med 05/03/19 09:00 Active 50 mg PO DAILY Medication Orders Acetaminophen (Tylenol) 650 mg PO Q4H PRN PRN Reason: Pain (mild 1-3) Last Admin: 05/02/19 21:40 Dose: 650 mg Bisacodyl (Dulcolax) 5 mg PO DAILY PRN PRN Reason: Constipation Cholecalciferol (Vitamin D3) 5,000 unit PO BEDTIME [facility] Last Admin: 05/02/19 20:59 Dose: 5,000 unit Cyanocobalamin (Vitamin B12) 5,000 mcg PO DAILY [facility] Last Admin: 05/03/19 09:02 Dose: 5,000 mcg Cyclobenzaprine HCl (Flexeril) 10 mg PO TID PRN PRN Reason: Spasms Docusate Sodium (Colace) 100 mg PO BID [facility] Last Admin: 05/03/19 09:03 Dose: 100 mg Admin: 05/02/19 20:59 Dose: 100 mg Famotidine (Pepcid) 20 mg PO Q12H [facility] Last Admin: 05/03/19 06:14 Dose: 20 mg Admin: 05/02/19 18:14 Dose: 20 mg Admin: 05/02/19 11:18 Dose: 20 mg Gabapentin (Neurontin) 600 mg PO TID [facility] Last Admin: 05/03/19 09:06 Dose: Not Given Admin: 05/02/19 20:59 Dose: 600 mg Admin: 05/02/19 16:02 Dose: 600 mg Ketorolac Tromethamine (Toradol) 15 mg IVPUSH Q6H PRN PRN Reason: Pain Magnesium Oxide (Magnesium Oxide) 400 mg PO DAILY [facility] Last Admin: 05/03/19 09:03 Dose: 400 mg Miscellaneous Information (Remove Patch) 0 ea TRDERM DAILY PRN PRN Reason: REMOVE OLD NICOTINE PATCH Morphine Sulfate (Morphine) 2 mg IVPUSH Q2H PRN PRN Reason: Breakthrough Pain Naloxone HCl (Narcan) 0.1 mg IVPUSH Q5M PRN PRN Reason: Oversedation Nicotine (Habitrol) 21 mg TRDERM DAILY PRN PRN Reason: Nicotine craving Ondansetron HCl (Zofran) 4 mg IVPUSH Q6H PRN PRN Reason: Nausea/Vomiting Last Admin: 05/03/19 08:55 Dose: 4 mg Oxycodone HCl (Oxycodone) 5 - 10 mg PO Q4H PRN PRN Reason: Pain Last Admin: 05/03/19 09:04 Dose: 10 mg Admin: 05/03/19 02:59 Dose: 10 mg Admin: 05/02/19 22:30 Dose: 10 mg Admin: 05/02/19 18:14 Dose: 5 mg Admin: 05/02/19 11:18 Dose: 5 mg Potassium Chloride (Klor-Con 10) 10 meq PO DAILY [facility] Last Admin: 05/03/19 09:03 Dose: 10 meq Pyridoxine HCl (Vitamin B6-Pyridoxine) 50 mg PO DAILY [facility] Last Admin: 05/03/19 09:03 Dose: 50 mg Rivaroxaban (Xarelto) 10 mg PO DAILY [facility] Last Admin: 05/03/19 09:03 Dose: 10 mg Senna (Senna) 8.6 mg PO BID PRN PRN Reason: Constipation - Assessment Assessment (Free Text/Narrative):: POD#1 - left TKA - Plan Plan (Free Text/Narrative):: 1. Discharge to home today. 2. Hgb 13.0. 3. Xarelto (family hx VTE), frequent mobility, TEDs. 4. Outpatient therapy. The pt's case was discussed with Dr. Russell.
--- NOTE | 2019-05-03 12:33 | PCM.DCSUM1 ---
Discharge Summary - Hospital Course Brief History: Herminio is a 43 yo male who underwent left TKA with Dr. Russell on 05-02. The procedure was completed under spinal anesthesia and a post- operative adductor canal block was placed. The pt tolerated the procedure well and was admitted to the Medical-Surgical Unit. Medical management was provided by the Hospitalist service. The pt's Hospital course was uneventful. The pt's Hgb on POD#1 was 13.0. On POD#1, Xarelto 10mg PO daily was initiated for VTE prophylaxis. SCDs and TEDs were also ordered. A Mepilex dressing was placed at the incision site at the time of surgery and remained clean and dry. The pt participated in P.T. and O.T. and progressed well. The pt was allowed to WBAT and used a FWW for mobility. On POD#1, the pt was deemed appropriate to discharge to home. - Discharge Data Discharge Date: 05/03/19 Discharge Disposition: Home, Self-Care 01 Condition: Good - Referral to Home Health Primary Care Physician: Herminio Yeboah MD - Patient Summary/Data Consults: Consultations 05/02/19 06:29 OT Evaluation and Treatment [CONS] Routine PT Evaluation and Treatment [CONS] Routine 05/02/19 06:30 Consult to Physician [CONS] Routine - Patient Instructions Diet: Usual Diet as Tolerated Activity: Apply Ice, As Tolerated, Elevate Extremity, Full Weight Bearing Driving: Do Not Drive Showering/Bathing: May Shower Wound/Incision Care: Keep Operative Site/Wound Site Clean and Dry, Do NOT Change Dressing Notify Provider of: Fever, Increased Pain, Swelling and Redness, Drainage, Nausea and/or Vomiting Other/Special Instructions: Please get up and moving around EVERY HOUR while awake. This helps to prevent blood clots. Please use your walker and have help with mobility as needed. Take a short walk in your home every hour while awake. Please take the Xarelto blood thinner medication daily as directed. At home, please complete the exercises that you learned during the Hospital stay. Schedule for physical therapy. Use the pain medication as needed. The medication may cause drowsiness and constipation. Contact your primary care provider for instructions if you are constipated. You may use a stool softener like docusate sodium or Colace 100mg twice daily and/or a laxative like Miralax daily for constipation. Increase your water and fiber intake while you are using the pain medication. Discontinue use of the pain medication as soon as able. Please do not use other medications that may cause drowsiness (other pain medications, anxiety pills, cold medications, sleeping pills, etc) while using the prescription pain medication. Do not use alcohol while using the pain medication. At this time, please do not use ibuprofen (Motrin, Advil) or naproxen (Aleve) for pain management as you are using the Xarelto. When the Xarelto course is completed, you could use ibuprofen or naproxen for pain management (if this is allowed by your primary care provider). Wear the EBONI hose during the day and you may remove these at night. Elevate the limb to decrease swelling. Place ice to the area often. Place a towel between your skin and the blue pad. Use the incentive spirometer often. Take deep breaths throughout the day. Please keep the dressing in place until follow-up. Notify the Clinic if the dressing becomes saturated. Increase your protein intake while you are healing. If you have diabetes, please closely monitor your blood sugars and notify your primary care provider with abnormal values. Elevated blood sugars increases the risk of infection. You may resume use of fish oil and CBD in 2 weeks. Please do not resume use of meloxicam until the Xarelto dose is completed. Call the Clinic with questions or concerns - [phone]. - Discharge Plan *PRESCRIPTION DRUG MONITORING PROGRAM REVIEWED*: No *COPY OF PRESCRIPTION DRUG MONITORING REPORT IN PATIENT GIANNA: No Prescriptions/Med Rec: Cyclobenzaprine [Flexeril] 10 mg PO TID PRN #40 tablet PRN Reason: Spasms oxyCODONE 5 - 10 mg PO Q4H PRN #60 tablet PRN Reason: Pain Rivaroxaban [Xarelto] 10 mg PO DAILY #30 tablet Home Medications: Home Meds Gabapentin [Neurontin] 600 mg PO TID 01/16/17 [History] Cholecalciferol (Vitamin D3) [Vitamin D3] 5,000 unit PO DAILY 05/02/19 [History] Cyanocobalamin (Vitamin B-12) [Vitamin B-12] 5,000 mcg PO DAILY 05/02/19 [ History] Magnesium Oxide [Magnesium] 400 mg PO DAILY 05/02/19 [History] Potassium Chloride 10 meq PO DAILY 05/02/19 [History] Pyridoxine HCl (Vitamin B6) [Vitamin B-6] 50 mg PO DAILY 05/02/19 [History] Bisacodyl [Dulcolax] 5 mg PO DAILY PRN tablet 05/03/19 [Rx] Cyclobenzaprine [Flexeril] 10 mg PO TID PRN #40 tablet 05/03/19 [Rx] Docusate Sodium [Colace] 100 mg PO BID cap 05/03/19 [Rx] Famotidine [Pepcid] 20 mg PO Q12H tablet 05/03/19 [Rx] Nicotine [Habitrol] 21 mg TRDERM DAILY PRN patch 05/03/19 [Rx] Remove Patch 0 ea TRDERM DAILY PRN each 05/03/19 [Rx] Rivaroxaban [Xarelto] 10 mg PO DAILY #30 tablet 05/03/19 [Rx] Sennosides [Senna] 8.6 mg PO BID PRN tablet 05/03/19 [Rx] oxyCODONE 5 - 10 mg PO Q4H PRN #60 tablet 05/03/19 [Rx] Patient Handouts: Rivaroxaban oral tablets, Total Knee Replacement, Easy-to- Read, Smokeless Tobacco Information, Adult Referrals: Мария Lima, [email or web address] [Physician Gaming Director] - - Discharge Summary/Plan Comment DC Time >30 min.: No - Patient Data Vitals - Most Recent: Last Vital Signs Temp 99.0 F 05/03/19 08:46 Pulse 98 05/03/19 08:46 Resp 20 05/03/19 08:46 BP 130/84 05/03/19 08:46 Pulse Ox 93 L 05/03/19 08:46 Weight - Most Recent: 271 lb 3.2 oz I&O - Last 24 hours: Intake & Output 05/02/19 05/03/19 05/03/19 22:59 06:59 14:59 Intake Total 1240 1800 120 Output Total 600 Balance 640 1800 120 Lab Results - Last 24 hrs: Laboratory Results - last 24 hr 05/03/19 05/03/19 Range/Units 05:13 05:13 WBC 9.86 H (4.23-9.07) K/mm3 RBC 4.12 L (4.63-6.08) M/mm3 Hgb 13.0 L (13.7-17.5) gm/dl Hct 39.1 L (40.1-51.0) % MCV 94.9 H (79.0-92.2) fl MCH 31.6 (25.7-32.2) pg MCHC 33.2 (32.2-35.5) g/dl RDW Std Deviation 42.9 (35.1-43.9) fL Plt Count 209 (163-337) K/mm3 MPV 9.7 (9.4-12.3) fl Sodium 141 (136-145) mEq/L Potassium 3.8 (3.5-5.1) mEq/L Chloride 107 (98-107) mEq/L Carbon Dioxide 26 (21-32) mEq/L Anion Gap 11.8 (5-15) BUN 10 (7-18) mg/dL Creatinine 1.0 (0.7-1.3) mg/dL Est Cr Clr Drug Dosing 100.40 mL/min Estimated GFR (MDRD) > 60 (>60) mL/min BUN/Creatinine Ratio 10.0 L (14-18) Glucose 132 H (74-106) mg/dL Calcium 8.1 L (8.5-10.1) mg/dL Total Bilirubin 0.4 (0.2-1.0) mg/dL AST 17 (15-37) U/L ALT 62 (16-63) U/L Alkaline Phosphatase 64 (46-116) U/L Total Protein 5.9 L (6.4-8.2) g/dl Albumin 3.3 L (3.4-5.0) g/dl Globulin 2.6 gm/dL Albumin/Globulin Ratio 1.3 (1-2) Med Orders - Current: Current Medications Acetaminophen (Tylenol) 650 mg PO Q4H PRN PRN Reason: Pain (mild 1-3) Last Admin: 05/02/19 21:40 Dose: 650 mg Bisacodyl (Dulcolax) 5 mg PO DAILY PRN PRN Reason: Constipation Cholecalciferol (Vitamin D3) 5,000 unit PO BEDTIME [facility] Last Admin: 05/02/19 20:59 Dose: 5,000 unit Cyanocobalamin (Vitamin B12) 5,000 mcg PO DAILY [facility] Last Admin: 05/03/19 09:02 Dose: 5,000 mcg Cyclobenzaprine HCl (Flexeril) 10 mg PO TID PRN PRN Reason: Spasms Docusate Sodium (Colace) 100 mg PO BID [facility] Last Admin: 05/03/19 09:03 Dose: 100 mg Famotidine (Pepcid) 20 mg PO Q12H [facility] Last Admin: 05/03/19 06:14 Dose: 20 mg Gabapentin (Neurontin) 600 mg PO TID [facility] Last Admin: 05/03/19 09:06 Dose: Not Given Ketorolac Tromethamine (Toradol) 15 mg IVPUSH Q6H PRN PRN Reason: Pain Magnesium Oxide (Magnesium Oxide) 400 mg PO DAILY [facility] Last Admin: 05/03/19 09:03 Dose: 400 mg Miscellaneous Information (Remove Patch) 0 ea TRDERM DAILY PRN PRN Reason: REMOVE OLD NICOTINE PATCH Morphine Sulfate (Morphine) 2 mg IVPUSH Q2H PRN PRN Reason: Breakthrough Pain Naloxone HCl (Narcan) 0.1 mg IVPUSH Q5M PRN PRN Reason: Oversedation Nicotine (Habitrol) 21 mg TRDERM DAILY PRN PRN Reason: Nicotine craving Ondansetron HCl (Zofran) 4 mg IVPUSH Q6H PRN PRN Reason: Nausea/Vomiting Last Admin: 05/03/19 08:55 Dose: 4 mg Oxycodone HCl (Oxycodone) 5 - 10 mg PO Q4H PRN PRN Reason: Pain Last Admin: 05/03/19 09:04 Dose: 10 mg Potassium Chloride (Klor-Con 10) 10 meq PO DAILY [facility] Last Admin: 05/03/19 09:03 Dose: 10 meq Pyridoxine HCl (Vitamin B6-Pyridoxine) 50 mg PO DAILY [facility] Last Admin: 05/03/19 09:03 Dose: 50 mg Rivaroxaban (Xarelto) 10 mg PO DAILY [facility] Last Admin: 05/03/19 09:03 Dose: 10 mg Senna (Senna) 8.6 mg PO BID PRN PRN Reason: Constipation Discontinued Medications Acetaminophen (Tylenol) 975 mg PO ONETIME [facility] Last Admin: 05/02/19 06:37 Dose: 975 mg Bupivacaine HCl (Sensorcaine-Mpf 0.25%) Confirm Administered Dose 30 ml .ROUTE .STK-MED ONE Stop: 05/02/19 06:20 Last Admin: 05/02/19 08:18 Dose: 30 ml Cefazolin Sodium (Ancef) Confirm Administered Dose 2 gm .ROUTE .STK-MED ONE Stop: 05/02/19 06:19 Last Admin: 05/02/19 08:12 Dose: 2 gm Cefazolin Sodium (Ancef) Confirm Administered Dose 2 gm .ROUTE .STK-MED ONE Stop: 05/02/19 06:29 Morphine Sulfate 8 mg/Epinephrine HCl 0.3 mg/Cefuroxime Sodium 750 mg/Ketorolac Tromethamine 30 mg/Sodium Chloride 27.9 ml 0 mg .XX ONETIME ONE Stop: 05/02/19 08:01 Last Admin: 05/02/19 08:18 Dose: 788.3 mg Diphenhydramine HCl (Benadryl) 25 mg IVPUSH Q6H PRN PRN Reason: pruritis Ephedrine Sulfate (Ephedrine In Ns) Confirm Administered Dose 25 mg .ROUTE .STK- MED ONE Stop: 05/02/19 07:33 Epinephrine HCl (Adrenalin) Confirm Administered Dose 1 mg .ROUTE .STK-MED ONE Stop: 05/02/19 07:25 Fentanyl (Sublimaze) Confirm Administered Dose 100 mcg .ROUTE .STK-MED ONE Stop: 05/02/19 06:28 Lactated Ringer's (Ringers, Lactated) 1,000 mls @ 125 mls/hr IV ASDIRECTED [facility] Stop: 05/02/19 23:00 Last Admin: 05/02/19 06:54 Dose: 125 mls/hr Cefazolin Sodium/Dextrose 2 gm (/ Premix) 50 mls @ 100 mls/hr IV Q8H [facility] Stop: 05/03/19 07:29 Last Admin: 05/03/19 06:13 Dose: 100 mls/hr Lidocaine HCl (Xylocaine-Mpf 1%) Confirm Administered Dose 4 mls @ as directed .ROUTE .STK-MED ONE Stop: 05/02/19 06:34 Lactated Ringer's (Ringers, Lactated) Confirm Administered Dose 1,000 mls @ as directed .ROUTE .STK-MED ONE Stop: 05/02/19 07:48 Iodine (Iodine 2% Mild Tincture) Confirm Administered Dose 30 ml .ROUTE .STK- MED ONE Stop: 05/02/19 06:19 Last Admin: 05/02/19 08:11 Dose: 18 ml Ketorolac Tromethamine (Toradol) Confirm Administered Dose 30 mg .ROUTE .STK- MED ONE Stop: 05/02/19 08:51 Lidocaine/Sodium Bicarbonate (Buffered Lidocaine 1% In Ns 8.4%) 0.25 ml IDERM ONETIME PRN PRN Reason: Prior to IV Start Stop: 05/02/19 18:00 Last Admin: 05/02/19 06:54 Dose: 0.25 ml Magnesium Hydroxide (Milk Of Magnesia) 30 ml PO BID PRN PRN Reason: Constipation Midazolam HCl (Versed 1 Mg/Ml) Confirm Administered Dose 2 mg .ROUTE .STK-MED ONE Stop: 05/02/19 06:28 Ondansetron HCl (Zofran) Confirm Administered Dose 4 mg .ROUTE .STK-MED ONE Stop: 05/02/19 07:25 Ondansetron HCl (Zofran) 4 mg IVPUSH ONETIME PRN PRN Reason: Nausea/Vomiting Oxycodone HCl (Oxycontin) 10 mg PO ONETIME PHILLIP Last Admin: 05/02/19 06:38 Dose: 10 mg Oxycodone/Acetaminophen (Percocet 325-5 Mg) 1 - 2 tab PO Q4H PRN PRN Reason: Pain Pregabalin (Lyrica) 50 mg PO ONETIME PHILLIP Last Admin: 05/02/19 06:38 Dose: 50 mg Propofol (Diprivan 20 Ml) Confirm Administered Dose 200 mg .ROUTE .STK-MED ONE Stop: 05/02/19 06:28 Propofol (Diprivan 20 Ml) Confirm Administered Dose 200 mg .ROUTE .STK-MED ONE Stop: 05/02/19 07:53 Ropivacaine (Naropin 0.5%) Confirm Administered Dose 30 ml .ROUTE .STK-MED ONE Stop: 05/02/19 07:26 Sodium Chloride (Saline Flush) 10 ml FLUSH ASDIRECTED PRN PRN Reason: Keep Vein Open Stop: 05/02/19 18:00 Tranexamic Acid (Cyklokapron) Confirm Administered Dose 1,000 mg .ROUTE .STK- MED ONE Stop: 05/02/19 06:19 Last Admin: 05/02/19 08:21 Dose: 1,000 mg Vancomycin HCl (Vancomycin) Confirm Administered Dose 1 gm [facility]TE [facility] Stop: 05/02/19 06:19 Last Admin: 05/02/19 08:21 Dose: 1 gm
--- NOTE | 2019-05-06 13:03 | PCM.OPNOTE ---
- General Post-Op/Procedure Note Date of Surgery/Procedure: 05/02/19 Operative Procedure(s): left total knee arthroplasty Pre Op Diagnosis: left knee osteoarthrosis Post-Op Diagnosis: Same Anesthesia Technique: Local, MAC, Spinal Primary Surgeon: Elvin Russell Anesthesia Provider: Milagro Jimenez Snuff Grinder: Мария Lima Snuff Grinder: Milagros Mullins EBSushant in mLs: 300 Complications: None Condition: Good Free Text/Narrative:: 7 femur 6 9mm 32x10
--- NOTE | 2019-05-06 13:21 | OR ---
DATE OF OPERATION: 05/02/2019 SURGEON: Elvin Russell MD OPERATION PERFORMED: Left total knee arthroplasty. PREOPERATIVE DIAGNOSIS: Left knee osteoarthrosis. POSTOPERATIVE DIAGNOSIS: Left knee osteoarthrosis. ANESTHESIA: Local MAC with spinal. ANESTHESIA PROVIDER: Milagro Jimenez CRNA STUDENT EDUCATION SPECIALIST: Мария Lima PA-C, and Milagros Mullins LPN. ESTIMATED BLOOD LOSS: 300 mL. COMPLICATIONS: None. CONDITION: Stable. IMPLANTS: 1. Maddi size 7 press-fit CR femur. 2. Maddi size 6 press-fit tibial base plate. 3. Maddi size 6 9 mm CS polyethylene insert. 4. Sterling size 32 x 10 mm press fit asymmetric patella. DESCRIPTION OF PROCEDURE: The patient was identified in the preop holding area. Proper site was marked and identified by the surgeon. The patient was taken back to the operating theater. After adequate anesthesia, the patient's left lower extremity had a nonsterile tourniquet applied and it was sterilely prepped and draped in the usual sterile fashion. OR time-out was performed. The patient received 2 g IV Ancef. At this time, the left lower extremity was exsanguinated. Tourniquet was insufflated to 300 mmHg. Standard medial parapatellar incision was made. Medial parapatellar arthrotomy was created. Deep fibers of the MCL were raised and anterior fat pad was resected. At this time, attention was turned to the patella. Patella measured 25, it was resected to a 15 for a 32 x 10 mm patella. Drill holes were then drilled and found to be in adequate position. The drill was then drilled in the distal femur and the intramedullary distal femoral cutting guide was then placed. 8 mm was resected off the distal femur and was found to be an adequate resection. Sizing guide was placed. It was found to be a size 7 press-fit CR femur that was shown on the implant record at the beginning of this dictation. The drill holes were drilled for the epicondylar axis using Whitesides line and epicondyles as reference. At this time, the 4-in- 1 cutting block was placed. An anterior posterior and anterior and posterior chamfer cuts were then completed. Attention was turned to the tibia. The posterior medial lateral retractors were placed. The extramedullary tibial guide was placed. It was placed in the old footprint of the ACL. It was aligned with the center of the ankle and 0 degrees of slope, 9 mm was then resected off the unaffected side. There was found to be an acceptable reduction. At this time, posterior osteophytes were removed along with medial and lateral meniscus. A trial implant was placed with a correct sized tibia that was mentioned at the beginning of the dictation. A Maddi size 6 9 mm CS polyethylene insert was then placed. The patient's knee was brought through range of motion. The patella was tracking centrally and was stable to varus and valgus stress. Alignment was found to be roughly at 0 degrees. The tibia was stamped and drilled in proper rotation. The universal tibial base plate was impacted in place. Next, the Maddi size 7 press-fit CR femur impacted into place and the Maddi size 6 9 mm CS polyethylene insert was placed. The patient's knee was brought into full extension. The patella was then press-fit in place at this time. Tourniquet was deflated. One liter dilute Betadine solution was irrigated through the knee along with 3 L of pulse lavage irrigation with Ancef. Periarticular injection was then completed. The patient's knee was brought through a range of motion. Once the cement had time to set up and it was found to be stable to varus valgus stress, the patella was tracking centrally with full range of motion. At this time, a #2 barbed suture was used for closure of the medial parapatellar arthrotomy. Topical tranexamic acid was placed. 2-0 Vicryl was used subcutaneously, Prineo was used for the skin. The patient tolerated the procedure well and was sent to the PACU in stable condition. MMODAL /[id number]
== END 2019-05-03 11:19 | disposition home or self-care (01) | DRG 302 ==
LOC: JD.SDS 06:20 → JD.MS 06:24 → JD.SDS 11:20
PROVIDERS: ADMIT Orthopaedic Surgery; ATTEND Orthopaedic Surgery
PROC: 0SRD0JA Replacement of Left Knee Joint with Synthetic Substitute, Uncemented, Open Approach (ICD-10-PCS; principal; 2019-05-02)
DX: M17.12 Unilateral primary osteoarthritis, left knee (principal); E78.00 Pure hypercholesterolemia, unspecified; E78.5 Hyperlipidemia, unspecified; E66.9 Obesity, unspecified; G89.29 Other chronic pain; M54.5 Low back pain; E78.2 Mixed hyperlipidemia; F17.200 Nicotine dependence, unspecified, uncomplicated; E87.6 Hypokalemia; E83.42 Hypomagnesemia; Z79.899 Other long term (current) drug therapy
CPT/HCPCS: 01402; 36415; 64450; 73560-26-LT; 73560-LT; 80053; 85027; 87641; 97110-GP; 97116-GP; 97161-GP; 97165-GO; 97535-GO; 99221; 99231; A9270-GY; C1776; J0171; J0690; J0697; J1885; J2001; J2250; J2270; J2405; J2704; J2795; J3010; J3370; J3490; J7050; J7120